=== PATIENT | female | born 1995 | race Caucasian/White ===

== ENCOUNTER → 2019-04-26 12:23 | Outpatient (CLI) | payer BC, SELFPAY ==
[2019-04-26 15:11] LABS: HCG,Quantitative 9367 mIU/mL (0-2)
== END ==
PROVIDERS: Visit Provider Nurse Practitioner Obstetrics & Gynecology
DX: N92.6 Irregular menstruation, unspecified (principal)
CPT/HCPCS: 36415; 84702

== ENCOUNTER → 2019-05-17 12:11 | Outpatient (CLI) | payer BC, SELFPAY ==
[2019-05-17 12:36] LABS: Basophils % 0.3 % (0.1-2.0); Eosinophils # 0.1 K/mm3 (0.0-0.4); Eosinophils % 0.9 % (0.1-12.0); Hematocrit 38.2 % (37.0-47.0); Hemoglobin 13.7 g/dL (12.2-16.2); Lymphocytes # 1.6 K/mm3 (0.7-4.5); Lymphocytes % 19.1 % (10-50); Mean Corpuscular HGB Conc 35.7 g/dL (31.8-35.4); Mean Corpuscular Hemoglobin 31.6 pg (27.0-31.2); Mean Corpuscular Volume 88.4 fl (81-99); Mean Platelet Volume 7.7 fl (7.4-10.4); Monocytes # 0.3 K/mm3 (0.1-1.0); Monocytes % 3.3 % (1.7-9.3); Neutrophils # 6.3 K/mm3 (1.8-7.8); Neutrophils % 76.4 % (37.0-80.0); Platelet Count 239 K/mm3 (142-424); Red Blood Count 4.33 M/mm3 (4.20-5.40); Red Cell Distribution Width 12.5 % (11.5-17.5); White Blood Count 8.3 K/mm3 (4.8-10.8)
[2019-05-18 07:32] LABS: HIV Screen 4th Generation wRfx Non Reactive (Non Reactive)
[2019-05-18 14:59] LABS: Rapid Plasma Reagin Ab Titer Non Reactive (NonRea<1:1)
[2019-05-18 15:00] LABS: Hepatitis B Surface Antigen Negative (Negative); Hepatitis C Antibody <0.1 s/co ratio (0.0-0.9); Rubella Antibodies, IgG 4.69 index (Immune >0.99)
== END ==
PROVIDERS: Visit Provider Nurse Practitioner Obstetrics & Gynecology
DX: Z34.90 Encounter for supervision of normal pregnancy, unspecified, unspecified trimester (principal)
CPT/HCPCS: 36415; 85025; 86592; 86703; 86762; 86850; 87340; 87380; G0432

== ENCOUNTER → 2019-05-24 10:23 | Outpatient (CLI) | payer BC, SELFPAY ==
--- NOTE | 2019-05-24 10:24 | US_ITS ---
PROCEDURE: US OB TRANSVAGINAL CLINICAL INDICATION: for dates evaluate gestational age, spotting COMPARISON: TVP US TRANSVAGINAL PREG from 01/24/2016 FINDINGS: There is an intrauterine gestational sac although somewhat more oblong in nature than 1 would expect.. However, there is no evidence of a yolk sac or pole. The adnexa on the right is unremarkable. There is a 19 mm left ovarian cyst. No cul-de-sac fluid is evident. On the last image submitted there is a circular area IMPRESSION: Intrauterine gestational sac with no obvious pole. Cannot confirm viability. Recommend serial beta HCGs and sonographic follow-up Estimated due date by Ultrasound is 01/15/2020 Dictated by: Narinder Singletary MD 05/24/2019 11:30 Electronically signed by Narinder Singletary MD in [place] 05/24/2019 11:30
[2019-05-24 13:23] LABS: HCG,Quantitative 15776 mIU/ml (0-5.42)
== END ==
PROVIDERS: PCP Emergency Medicine; Visit Provider Nurse Practitioner Obstetrics & Gynecology
DX: O26.841 Uterine size-date discrepancy, first trimester (principal); Z34.90 Encounter for supervision of normal pregnancy, unspecified, unspecified trimester
CPT/HCPCS: 36415; 76817; 84702

== ENCOUNTER → 2019-05-26 15:08 | Outpatient (CLI) | payer BC, SELFPAY ==
[2019-05-26 19:36] LABS: HCG,Quantitative 12053 mIU/ml (0-5.42)
== END ==
PROVIDERS: Visit Provider Nurse Practitioner Obstetrics & Gynecology
DX: Z34.90 Encounter for supervision of normal pregnancy, unspecified, unspecified trimester (principal)
CPT/HCPCS: 36415; 84702

== ENCOUNTER → 2020-12-14 12:16 | Outpatient (CLI) | payer BC, SELFPAY ==
[2020-12-14 13:22] LABS: HCG,Quantitative 5272 mIU/ml (0-5.42)
== END ==
PROVIDERS: Visit Provider Obstetrics & Gynecology
DX: Z34.90 Encounter for supervision of normal pregnancy, unspecified, unspecified trimester (principal)
CPT/HCPCS: 84702

== ENCOUNTER → 2020-12-18 14:59 | Outpatient (CLI) | payer BC, SELFPAY ==
[2020-12-18 16:00] LABS: HCG,Quantitative 13386 mIU/ml (0-5.42)
== END ==
PROVIDERS: Visit Provider Obstetrics & Gynecology
DX: Z34.90 Encounter for supervision of normal pregnancy, unspecified, unspecified trimester (principal)
CPT/HCPCS: 36415; 84702

== ENCOUNTER 2020-12-27 20:42 | Emergency (ER) | payer BC, SELFPAY ==
[2020-12-27 21:31] VITALS: BMI 22.8
--- NOTE | 2020-12-27 21:31 | US_ITS ---
PROCEDURE INFORMATION: Exam: US , Transvaginal Exam date and time: 12/27/2020 9:31 PM Age: 25 years old Clinical indication: Lmp or gestational age (in weeks): 6w4; Antepartum complications; Bleeding; ; Additional info: 6-8 wk preg, vaginal bleeding. No pain TECHNIQUE: Imaging protocol: Real-time transvaginal obstetrical ultrasound of the maternal pelvis with image documentation. Transvaginal imaging was used for better evaluation of the fetus, adnexa, and/or cervix. COMPARISON: US OB TRANSVAGINAL 05/24/2019 10:32 AM FINDINGS: Gestation: There is a single gestational sac identified within the superior aspect of the endometrial cavity. On sagittal imaging the gestational sac has a dumbbell shape. Contained within the gestational sac is a yolk sac and embryonic pole. Yolk sac size is 4 mm. [place]-rump length is 0.52 cm which corresponds to a mean gestational age of 6 weeks 2 days. heart rate is 120 beats per minute. Placenta: There is no evidence of subchorionic fluid collection or bleed. MATERNAL: Cervix: The cervix is closed. Right adnexa: The right ovary measures 2.5 x 1.2 x 1.4 cm. The left ovary measures 3.0 x 2.3 x 1.4 cm. There is no evidence of free fluid within the cul-de-sac. IMPRESSION: 1. Single viable intrauterine gestation with a mean gestational age of 6 weeks 2 days. heart rate 120 beats per minute. No evidence of subchorionic fluid collection at this time. 2. The ovaries are normal size and echotexture. No evidence of free fluid within the cul-de-sac. 3. The gestational sac appears misshapen. To further evaluate this patient progress examination in 1 week would be helpful.
[2020-12-27 21:40] LABS: Microscopic, Urine URINE MICROSCOPIC (MICROSCOPIC)
[2020-12-27 22:01] LABS: Appearance,Urine SL CLOUDY (Clear); Bilirubin,Urine Negative (Negative); Blood, Urine 3+ (Negative); Color,Urine YELLOW (Yellow); Glucose,Urine (UA) Negative (Negative); Ketones,Urine Negative (Negative); Leukocyte Esterase,Urine TRACE (Negative); Nitrate,Urine Negative (Negative); Protein,Urine Negative (Negative); Specific Gravity, Urine 1.025 (1.005-1.030); Urobilinogen,Urine 0.2 EU/dl (0.2)
[2020-12-27 22:06] LABS: Urine Pregnancy, HCG Qual. Positive (Negative)
[2020-12-27 22:07] VITALS: BP 100/58; PULSE 93; RESP 16; TEMP 36.9; O2SAT 99; BMI 23.7
[2020-12-27 22:10] LABS: Bacteria,Urine 3+ /lpf; Mucus,Urine 2+ /lpf
--- NOTE | 2020-12-27 22:15 | PC.NURSE ---
[facility] (u/s [facility]) s/w Dr. Leyva with results.
--- NOTE | 2020-12-27 22:17 | HMH.EDPREG ---
ED Disposition Clinical Impression: Vaginal bleeding during Qualifiers: Weeks of gestation: less than 8 weeks Qualified Code(s): Z3A.01 - Less than 8 weeks gestation of Disposition: Home, Self-Care Condition on Discharge: Good Instructions: DI for Vaginal Bleeding During Additional Instructions: call ob in am and check on urine culture results Referrals: Ricardo Leyva MD [Primary Care Provider] - - Critical Care Critical Care Time: No Attestation: On 12/27/20, the high probability of a clinically significant, sudden or life threatening deterioration of the following system(s) required my full and direct attention, intervention and personal management. The time I documented below is in addition to time spent performing reported procedures but includes the following listed in this critical care notation. Medical Decision Making - Medical Records Medical records reviewed: Yes: I reviewed the patient's medical records. - Neeraj Inquiry Pt receiving controlled substance: No Vital Signs: 12/27/20 22:07 Temperature 98.4 F Temperature Source Oral Pulse Rate [Right] 93 H Respiratory Rate 16 Blood Pressure [Right Arm] 100/58 L Blood Pressure Mean [Right Arm] 72 02 Sat by Pulse Oximetry 99 Oxygen Delivery Method Room Air - Lab Data Lab results reviewed: Yes: I reviewed the patient's lab results. Lab Results 12/27/20 20:58: Urine Color Yellow, Urine Appearance Sl cloudy, Urine pH 6.0, Ur Specific [place] 1.025, Urine Protein Negative, Urine Glucose (UA) Negative, Urine Ketones Negative, Urine Blood 3+, Urine Nitrate Negative, Urine Bilirubin Negative, Urine Urobilinogen 0.2, Ur Leukocyte Esterase Trace, Urine RBC 10-20, Urine WBC 5-10, Ur Squamous Epith Cells 10-20, Urine Bacteria 3+, Urine Mucus 2+ 12/27/20 20:58: Urine HCG, Qual Positive Orders (Tests/Meds): ORDERS Category Date Time Status US transvaginal Stat Exams 12/27/20 21:31 Ordered C-Reactive Protein Stat Lab 12/27/20 21:32 Ordered Complete Blood Count Auto Diff Stat Lab 12/27/20 21:32 Ordered Comprehensive Metabolic Panel Stat Lab 12/27/20 21:32 Ordered Erythrocyte Sedimentation Rate Stat Lab 12/27/20 21:32 Ordered HCG,Quantitative Stat Lab 12/27/20 21:32 Ordered Procalcitonin Stat Lab 12/27/20 21:32 Ordered Urine Culture Stat Micro 12/27/20 20:58 Received - US Data US Images: Pelvis ED US Reviewed: Yes: I discussed the US results w/the radiologist Findings Narrative: iup Medical Decision Narrative: has stable labs and exam and pelvic u/s - has A+ blood type HPI - General Chief complaint: Vaginal Bleeding Stated complaint: vaginal bleeding 6-8weeks Time Seen by Provider: 12/27/20 22:05 Mode of Arrival: Family Vehicle Source of Information: Patient, Medical Record Limitations: No Limitations Description of Symptoms (Recalled from ER Triage Doc. by RN): Pt states she was spotting last wk. Today she felt a gush and and then began bleeding more than before. She states she has had 2 miscarriages before @ 5 wk and ~ 10wk and had a dnc 1.5 yr ago[address] Bonilla. Pt denies any pain. Nausea without vomiting. She states LMP was 11/09/20. Pt has not had a u/s yet oir see OB for this pregnacy. - History of Present Illness HPI Narrative: pt is early preg and had bleeding like early menses with sl cramp- reports a+ blood type and has hx of prev miscarriage - MD Complaint: vaginal bleeding Onset (ago): hour(s) Consistency: intermittent Severity: moderate Quality: cramping Associated symptoms: denies other symptoms Vaginal discharge: none Vaginal bleeding: light : Yes Date of Last Menstrual Period: 11/09/20 care: followed by OB - Related Data Blood Type: A (+) positive Para: 0 Home Medications Medication Instructions Recorded Confirmed Pnv No.95/Ferrous Fum/Folic AC 1 each PO DAILY 12/27/20 12/27/20 [ Caplet]
[2020-12-27 22:31] VITALS: BP 105/60; PULSE 88; RESP 16; TEMP 36.9; O2SAT 99
== END 2020-12-27 22:34 | disposition home or self-care (01) ==
PROVIDERS: Emergency Provider Emergency Medicine; PCP Emergency Medicine
DX: O20.9 Hemorrhage in early pregnancy, unspecified (principal); Z3A.08 8 weeks gestation of pregnancy
CPT/HCPCS: 76830; 81001; 81025; 87086; 99282

== ENCOUNTER → 2021-01-05 14:57 | Outpatient (CLI) | payer BC, SELFPAY ==
[2021-01-05 15:19] LABS: Basophils # 0.1 K/mm3 (0-0.2); Basophils % 0.5 % (0.1-2.0); Eosinophils # 0.1 K/mm3 (0.0-0.4); Eosinophils % 0.8 % (0.1-12.0); Hematocrit 37.2 % (37.0-47.0); Hemoglobin 12.7 g/dL (12.2-16.2); Lymphocytes # 1.6 K/mm3 (0.7-4.5); Lymphocytes % 16.8 % (10-50); Mean Corpuscular HGB Conc 34.2 g/dL (31.8-35.4); Mean Corpuscular Volume 90.6 fl (81-99); Mean Platelet Volume 8.6 fl (7.4-10.4); Monocytes # 0.4 K/mm3 (0.1-1.0); Monocytes % 3.7 % (1.7-9.3); Neutrophils # 7.5 K/mm3 (1.8-7.8); Neutrophils % 78.2 % (37.0-80.0); Platelet Count 280 K/mm3 (142-424); Red Blood Count 4.11 M/mm3 (4.20-5.40); Red Cell Distribution Width 12.9 % (11.5-17.5); White Blood Count 9.6 K/mm3 (4.8-10.8)
[2021-01-07 07:22] LABS: Progesterone 11.7 ng/mL (.)
[2021-01-07 08:12] LABS: Rubella Antibodies, IgG 4.82 index (Immune >0.99)
[2021-01-07 09:12] LABS: Rapid Plasma Reagin Ab Titer Non Reactive (NonRea<1:1)
[2021-01-07 10:17] LABS: HIV Screen 4th Generation wRfx Non Reactive (Non Reactive)
[2021-01-07 12:08] LABS: Hepatitis B Surface Antigen Negative (Negative); Hepatitis C Antibody <0.1 s/co ratio (0.0-0.9)
== END ==
PROVIDERS: Visit Provider Obstetrics & Gynecology
DX: Z34.90 Encounter for supervision of normal pregnancy, unspecified, unspecified trimester (principal)
CPT/HCPCS: 36415; 84144; 85025; 86592; 86703; 86762; 86850; 87340; 87380; G0432

== ENCOUNTER → 2021-01-10 13:45 | Outpatient (CLI) | payer BC, SELFPAY ==
--- NOTE | 2021-01-10 13:45 | US_ITS ---
PROCEDURE: US OB <= 14 WEEKS FETUS CLINICAL INDICATION: follow up Follow-up for viability COMPARISON: US US OB TRANSVAGINAL from 05/24/2019 US US TRANSVAGINAL from 12/27/2020 FINDINGS: An intrauterine gestational sac is present with a pole with a crown-rump length of 2cm correlating to gestational age of 8weeks 5days. heart tones are present with an FHR of 183bpm. Yolk sac is noted. There is a small hypoechoic area adjacent to the gestational sac which may represent a small area of subchorionic hemorrhage IMPRESSION: Live IUP at 8 weeks 5 days. Possible small area of subchorionic bleed measuring 8 x 5 mm Estimated due date by Ultrasound is 08/17/2021 Dictated by: Narinder Singletary MD 01/10/2021 17:20 Narinder Singletary MD in [place] 01/10/2021 17:20
== END ==
LOC: RAD 13:45
PROVIDERS: PCP Emergency Medicine; Visit Provider Obstetrics & Gynecology
DX: O28.3 Abnormal ultrasonic finding on antenatal screening of mother (principal)
CPT/HCPCS: 76801

== ENCOUNTER → 2021-01-23 14:26 | Outpatient (CLI) | payer BC, SELFPAY ==
[2021-01-25 08:14] LABS: Progesterone 15.6 ng/mL (.)
== END ==
PROVIDERS: Visit Provider Obstetrics & Gynecology
DX: Z34.90 Encounter for supervision of normal pregnancy, unspecified, unspecified trimester (principal)
CPT/HCPCS: 84144

== ENCOUNTER → 2021-04-17 13:41 | Outpatient (CLI) | payer BC, SELFPAY ==
--- NOTE | 2021-04-17 13:42 | US_ITS ---
FINAL REPORT CLINICAL HISTORY: dates-- anatomy scan FINDINGS: There is a single live intrauterine gestation. Presentation is cephalic. The cervix is closed and measures 3.06 cm. Placenta is anterior, grade 1. movement is noted. Heart arrhythmia was noted on real-time imaging. Three-vessel cord with satisfactory umbilical cord insertion. Four-chamber heart is noted. brain and ventricles are unremarkable. Chest and diaphragm are unremarkable. ABDOMEN: Both kidneys are unremarkable. Stomach is unremarkable. SPINE: No anomalies identified. Both arms and legs noted. AMNIOTIC FLUID: Appropriate amount. MEASUREMENTS: ULTRASOUND AGE: 22 weeks 4 days. GESTATION AGE: 22 weeks 1 day. ESTIMATED WEIGHT: 513 g GROWTH PERCENTILE: 64 % BPD: 5.51 cm consistent with 22 weeks 6 days. OFD: 7 cm consistent with 22 week 5 days. HC: 19.79 cm consistent with 22 weeks 0 days. AC: 17.54 cm consistent with 22 week 4 days. FL: 3.96 cm consistent with 22 weeks 6 days. CEREBELLUM: 2.20 cm consistent with 22 weeks 0 days. HUMERUS: 3.73 cm consistent with 23 week 1 day. HC/AC: 1.13 CI: 79% FL/BPD: 72% FL/AC: 23% IMPRESSION: Single living IUP with an ultrasound age of 22 week 4 days. Heart arrhythmia was noted on real-time imaging. Recommend continued follow-up. Reviewed, Interpreted and Dictated by Sunil Quesada III, MD Transcribed by Nicole Redmond Authenticated by Sunil Quesada III, MD on 04/17/2021 04:00:58 PM [facility]
== END ==
LOC: RAD 13:42
PROVIDERS: PCP Emergency Medicine; Visit Provider Obstetrics & Gynecology
DX: Z34.90 Encounter for supervision of normal pregnancy, unspecified, unspecified trimester (principal)
CPT/HCPCS: 76801

== ENCOUNTER → 2021-05-21 08:26 | Outpatient (CLI) | payer BC, SELFPAY ==
[2021-05-21 08:52] LABS: Basophils # 0.1 K/mm3 (0-0.2); Basophils % 0.6 % (0.1-2.0); Eosinophils # 0.3 K/mm3 (0.0-0.4); Eosinophils % 1.7 % (0.1-12.0); Hematocrit 32.8 % (37.0-47.0); Hemoglobin 11.1 g/dL (12.2-16.2); Lymphocytes # 1.9 K/mm3 (0.7-4.5); Lymphocytes % 11.5 % (10-50); Mean Corpuscular HGB Conc 33.9 g/dL (31.8-35.4); Mean Corpuscular Hemoglobin 32.7 pg (27.0-31.2); Mean Corpuscular Volume 96.5 fl (81-99); Mean Platelet Volume 9.1 fl (7.4-10.4); Monocytes # 0.5 K/mm3 (0.1-1.0); Monocytes % 3.2 % (1.7-9.3); Neutrophils # 13.5 K/mm3 (1.8-7.8); Neutrophils % 82.9 % (37.0-80.0); Platelet Count 286 K/mm3 (142-424); Red Cell Distribution Width 13.8 % (11.5-17.5); White Blood Count 16.2 K/mm3 (4.8-10.8)
[2021-05-21 08:58] LABS: MANUAL DIFFERENTIAL MANUAL DIFFERENTIAL (MANUAL DIFF)
[2021-05-21 10:25] LABS: Glucose 1 Hour 123 mg/dL (74-100); Glucose,Fasting 80 mg/dl (74-100)
[2021-05-21 11:01] LABS: Eosinophils % 2 % (0-3); Lymphocytes % 8 % (10-50); Monocytes % 1 % (2-9); Neutrophils % 88 % (42-76); Platelet Estimate Normal; RBC Morphology Normal; Total Cells Counted 100
== END ==
PROVIDERS: Visit Provider Obstetrics & Gynecology
DX: Z34.90 Encounter for supervision of normal pregnancy, unspecified, unspecified trimester (principal)
CPT/HCPCS: 36415; 82951; 85007; 85025

== ENCOUNTER → 2021-07-11 13:49 | Outpatient (CLI) | payer BC, SELFPAY ==
--- NOTE | 2021-07-11 13:49 | US_ITS ---
FINAL REPORT CLINICAL HISTORY: Growth and SUNNY FINDINGS: There is a single live intrauterine gestation. Presentation is cephalic. Placenta is anterior, fundal and grade 2. Cardiac activity is confirmed at 163 bpm. brain and ventricles are unremarkable. Chest and diaphragm are unremarkable. ABDOMEN: Both kidneys are unremarkable. Stomach is unremarkable. Both arms and legs noted. AMNIOTIC FLUID: 12.2 cm MEASUREMENTS: ULTRASOUND AGE: 34 weeks 4 days. GESTATION AGE: 34 weeks 2 days. ESTIMATED WEIGHT: 2493 g GROWTH PERCENTILE: 57% BPD: 8.4 cm consistent with 33 weeks 6 days. OFD: 11 cm consistent with 35 weeks 3 days. HC: 30.7 cm consistent with 34 weeks 2 days. AC: 30.8 cm consistent with 34 weeks 5 days. FL: 6.9 cm consistent with 35 weeks 2 days. HC/AC: 1.0 CI: 76% FL/BPD: 82% FL/AC: 22% IMPRESSION: Single living IUP with an ultrasound age of 34 weeks 4 days. Reviewed, Interpreted and Dictated by Sunil Quesada III, MD Transcribed by Kyle Macias Authenticated by Sunil Quesada III, MD on 07/11/2021 04:55:04 PM [facility]
== END ==
LOC: RAD 13:49
PROVIDERS: PCP Emergency Medicine; Visit Provider Obstetrics & Gynecology
DX: O36.5990 Maternal care for other known or suspected poor fetal growth, unspecified trimester, not applicable or unspecified (principal)
CPT/HCPCS: 76816

== ENCOUNTER → 2021-07-19 13:09 | Outpatient (CLI) | payer BC, SELFPAY | PROVIDERS: Visit Provider Obstetrics & Gynecology | DX: Z34.90 Encounter for supervision of normal pregnancy, unspecified, unspecified trimester (principal); Z3A.35 35 weeks gestation of pregnancy | CPT/HCPCS: 86403 ==

== ENCOUNTER → 2021-08-15 10:22 | Outpatient (CLI) | payer BC, SELFPAY | PROVIDERS: PCP Emergency Medicine; Visit Provider Obstetrics & Gynecology | DX: Z01.818 Encounter for other preprocedural examination (principal); Z20.822 Contact with and (suspected) exposure to COVID-19; Z34.90 Encounter for supervision of normal pregnancy, unspecified, unspecified trimester | CPT/HCPCS: C9803; U0003; U0005 ==

== ENCOUNTER 2021-08-16 04:56 | Inpatient (IN) | payer BC, SELFPAY ==
[2021-08-16 05:03] VITALS: BMI 24.3
[2021-08-16 05:41] LABS: Coronavirus 19, PCR Not Detected (NotDetected); Influenza A, PCR Not Detected (NotDetected); Influenza B, PCR Not Detected (NotDetected); MANUAL DIFFERENTIAL MANUAL DIFFERENTIAL (MANUAL DIFF); Microscopic, Urine URINE MICROSCOPIC (MICROSCOPIC)
[2021-08-16 05:43] LABS: Basophils # 0.1 K/mm3 (0-0.2); Eosinophils # 0.3 K/mm3 (0.0-0.4); Eosinophils % 2.6 % (0.1-12.0); Hematocrit 38.2 % (37.0-47.0); Hemoglobin 13.3 g/dL (12.2-16.2); Lymphocytes # 1.8 K/mm3 (0.7-4.5); Lymphocytes % 13.8 % (10-50); Mean Corpuscular HGB Conc 34.8 g/dL (31.8-35.4); Mean Corpuscular Hemoglobin 32.6 pg (27.0-31.2); Mean Corpuscular Volume 93.9 fl (81-99); Mean Platelet Volume 10.7 fl (7.4-10.4); Monocytes # 0.5 K/mm3 (0.1-1.0); Monocytes % 3.5 % (1.7-9.3); Neutrophils # 10.2 K/mm3 (1.8-7.8); Neutrophils % 79.2 % (37.0-80.0); Platelet Count 212 K/mm3 (142-424); Red Blood Count 4.07 M/mm3 (4.20-5.40); Red Cell Distribution Width 14.1 % (11.5-17.5); White Blood Count 12.9 K/mm3 (4.8-10.8)
[2021-08-16 05:45] LABS: Appearance,Urine CLEAR (Clear); Bilirubin,Urine Negative (Negative); Blood, Urine Negative (Negative); Color,Urine YELLOW (Yellow); Glucose,Urine (UA) Negative (Negative); Ketones,Urine Negative (Negative); Leukocyte Esterase,Urine Negative (Negative); Nitrate,Urine Negative (Negative); Protein,Urine Negative (Negative); Specific Gravity, Urine 1.025 (1.005-1.030); Urobilinogen,Urine 0.2 EU/dl (0.2)
[2021-08-16 05:56] LABS: Barbiturates Screen,Urine Negative ng/ml (<200)
[2021-08-16 05:57] LABS: Amphetamine/Metha Screen,Urine Negative ng/ml (<1000); Benzodiazepines Screen,Urine Negative ng/ml (<200)
[2021-08-16 05:58] LABS: Cannabinoid Screen,Urine Negative ng/ml (<50)
[2021-08-16 05:59] LABS: Cocaine Screen,Urine Negative ng/ml (<300); Methadone Screen,Urine Negative ng/ml (<300)
[2021-08-16 06:00] LABS: Opiate Screen,Urine Negative ng/ml (<300)
[2021-08-16 06:01] LABS: Phencyclidine Screen,Urine Negative ng/ml (<25)
[2021-08-16 06:16] VITALS: BP 114/71; PULSE 86; RESP 17; TEMP 36.6; O2SAT 100; BMI 24.3
[2021-08-16 07:23] LABS: Bacteria,Urine 1+ /lpf; Calcium Oxalate Crystals,Urine 1+ /lpf
[2021-08-16 07:44] VITALS: BP 119/85; PULSE 87; RESP 16; TEMP 36.5; O2SAT 99
[2021-08-16 07:54] LABS: Eosinophils % 2 % (0-3); Lymphocytes % 16 % (10-50); Monocytes % 5 % (2-9); Neutrophils % 76 % (42-76); RBC Morphology Normal; Total Cells Counted 100
[2021-08-16 07:55] LABS: Platelet Estimate Normal
--- NOTE | 2021-08-16 09:28 | HMH.HP ---
*Admission Date: 08/16/21 *Chief complaint: Labor induction *History of present illness: 26 yo with AVI 08/20/21 39 3/ with dating by 6 04/16 ultrasound care [facility]- Dr. Bonilla arrhythmia noted on 20 week anatomy ultrasound M consult with no abnormal findings and normal cardiac anatomy testing reassuring with weekly NST and no arrhythmia detected [facility] History I have reviewed the patient's past medical history: Yes Medical History: Denies:: Cancer, Diabetes Mellitus Type 1, Diabetes Mellitus Type 2, Internal Pacemaker, MRSA, Seizures *Have you ever received a pneumonia vaccine?: No *Have you received a flu vaccine this season?: No Other Medical History: Denies: Blood Transfusion Reaction Anesthesia experience/problems:: none Other Surgeries: Yes: No Previous Surgery, Dilation and Curettage. No: , Pacemaker Amputation: No Fractures: No - *Social History Smoking Status: Never smoker Alcohol Intake: never Alcohol Intake Frequency:: other Substance Use Type: denies use *Occupational Status:: unemployed Housing: house Household Members: spouse *Travel in the last 8 weeks: None Family Hx:: No significant family history Para: 0 Review of Systems - Review of Systems Review of systems:: pertinent systems reviewed and negative unless documented below - *Genitourinary Denies abnormal vaginal bleeding Meds Home Medications Medication Instructions Recorded Confirmed Type Pnv No.95/Ferrous Fum/Folic AC 1 each PO DAILY 12/27/20 08/16/21 History [ Caplet] Ferrous Sulfate [Slow Fe] 142 mg PO DAILY 08/16/21 08/16/21 History Allergies Allergy/AdvReac Type Severity Reaction Status Date / Time No Known Allergies Allergy Verified 08/13/21 14:54 Exam Vital signs and Labs for Last 24 Hours: Temp Pulse Resp BP Pulse Ox 97.8 F 71 18 106/65 L 99 08/16/21 12:04 08/16/21 12:04 08/16/21 12:04 08/16/21 12:04 08/16/21 07:44 Laboratory Results - last 24 hr 08/16/21 05:29: WBC 12.9 H, RBC 4.07 L, Hgb 13.3, Hct 38.2, MCV 93.9, MCH 32.6 H, MCHC 34.8, RDW 14.1, Plt Count 212, MPV 10.7 H, Neut % (Auto) 79.2, Lymph % (Auto) 13.8, [place] % (Auto) 3.5, Eos % (Auto) 2.6, Baso % (Auto) 1.0, Neut # (Auto) 10.2 H, Lymph # (Auto) 1.8, [place] # (Auto) 0.5, Eos # (Auto) 0.3, Baso # (Auto) 0.1, Total Counted 100, Neutrophils % (Manual) 76, Lymphocytes % (Manual) 16, Monocytes % (Manual) 5, Eosinophils % (Manual) 2, Basophils % (Manual) 1.0, Platelet Estimate Normal, RBC Morphology Normal 08/16/21 05:29: Urine Color Yellow, Urine Appearance Clear, Urine pH 6.0, Ur Specific [place] 1.025, Urine Protein Negative, Urine Glucose (UA) Negative, Urine Ketones Negative, Urine Blood Negative, Urine Nitrate Negative, Urine Bilirubin Negative, Urine Urobilinogen 0.2, Ur Leukocyte Esterase Negative, Urine WBC 3-5, Ur Squamous Epith Cells 10-20, Calcium Oxalate Crystal 1+, Urine Bacteria 1+ 08/16/21 05:29: SARS-CoV-2 (PCR) Not detected, Influenza A Untype (PCR) Not detected, Influenza Type B (PCR) Not detected 08/16/21 05:29: Blood Type A Positive, Antibody Screen Negative 08/16/21 05:30: Urine Opiates Screen Negative, Urine Methadone Screen Negative, Ur Barbituates Screen Negative, Ur Phencyclidine Scrn Negative, Ur Amphetamines Screen Negative, U Benzodiazepines Scrn Negative, Urine Cocaine Screen Negative, U Marijuana (THC) Screen Negative I & O for Last 24 hours: Intake & Output 08/14/21 08/15/21 08/16/21 08/17/21 11:59 11:59 11:59 11:59 Weight 160 lb - Constitutional no acute distress - *Routine HEENT Exam Head: Present: normocephalic Eye: Present: EOMI, PERRL ENT: Present: mucous membranes moist - *Routine Neck Exam Present: supple. Absent: lymphadenopathy - *Routine Respiratory Exam Present: CTA bilaterally - *Routine Cardiovascular Exam Present: RRR - *Routine Abdominal Exam Present: soft, normoactive bowel sounds. Absent: tenderness - *Routine
--- NOTE | 2021-08-16 11:43 | P.PN_ITS ---
[facility] Anesthesia Checklist - Patient Identification Patient Identification: Arm Band, Verbal (Name & ) - Structural Data Admitted From: Inpatient Planned Operative Procedure/s: Right Knee Arthroscopy Consent for Planned Operative Procedure(s) Verified: Yes Verified Documents: Surgical Consent - NPO Status Verified Time NPO: 00:00 - Chart Verification Results Verified: CBC, BMP - Additional verifications Anesthesia Reactions: No Hx Blood Transfusions: No Blood Transfusion Reaction: No - Airway Assessment C-Spine Mobility Assessed: Yes TMJ Mobility Assessed: Yes Dentition: Good Dentition - Neurological Assessment Level of Consciousness: Awake, Alert, Appropriate - Anesthesia Plan Anesthesia Risk discussed: Yes ASA Class: II Anesthesia Type: Epidural [facility] History Medical History: Denies:: Cancer, Diabetes Mellitus Type 1, Diabetes Mellitus Type 2, Internal Pacemaker, MRSA, Seizures *Have you ever received a pneumonia vaccine?: No *Have you received a flu vaccine this season?: No Other Medical History: Denies: Blood Transfusion Reaction Anesthesia experience/problems:: none Other Surgeries: Yes: No Previous Surgery, Dilation and Curettage. No: C- section, Pacemaker Amputation: No Fractures: No - *Social History Smoking Status: Never smoker Alcohol Intake: never Alcohol Intake Frequency:: other Substance Use Type: denies use *Occupational Status:: unemployed Housing: house Household Members: spouse *Travel in the last 8 weeks: None Family Hx:: No significant family history Para: 0
[2021-08-16 12:04] VITALS: BP 106/65; PULSE 71; RESP 18; TEMP 36.6
[2021-08-16 16:02] VITALS: BP 120/65; PULSE 88; RESP 16; TEMP 36.8
--- NOTE | 2021-08-16 17:23 | HMH.DN ---
- Delivery Note Delivery Date:: 08/16/21 Delivery Time:: 13:55 Anesthesia Type: Epidural Was labor medically induced?: Yes Induction method: per pitocin protocol Gestational age (weeks): 39 delivered prior to 39 weeks?: No Gender: Female at 1 minute: 6 at 5 minutes: 9 LAC or MLE?: LAC Delivery Procedure:: Repetitive deep variable decelerations of heart rate with pushing Vacuum-assisted vaginal delivery of live born female infant over intact perineum. Delivery uncomplicated No nuchal cord No shoulder dystocia with delivery taken to warmer immediately after delivery, with standard nursing assessment performed Infant Apgars: 6 & 9 Placenta spontaneously expressed and examined; noted to be complete/intact. Bilateral vaginal sulcus tears repaired with 2-0 vicryl 2nd degree perineal laceration repaired in layers with vicryl EBL: 500 cc All sponge/needle/instrument counts correct at conclusion of procedure Mother and infant stable to recovery Laceration:: vaginal Placental Delivery Description: Spontaneous
[2021-08-17 06:58] LABS: Hematocrit 31.5 % (37.0-47.0); Hemoglobin 10.9 g/dL (12.2-16.2)
[2021-08-17 08:16] VITALS: BP 116/63; PULSE 85; RESP 17; TEMP 36.4; O2SAT 99
--- NOTE | 2021-08-17 12:01 | HMH.ACPN2 ---
Internal Medicine - PN: Subj *Date: 08/17/21 *Time: 12:01 Interval history: PPD #1 VAVD She is doing well today without any unusual complaints She is tolerating a regular diet She is ambulating and voiding without difficulty Procedure EBL 500cc with Hgb today 10.1 She is asymptomatic with anemia Exam Vital signs and Labs for Last 24 Hours: Temp Pulse Resp BP Pulse Ox 97.8 F 91 H 16 115/65 99 08/17/21 15:40 08/17/21 15:40 08/17/21 15:40 08/17/21 15:40 08/17/21 15:40 Laboratory Results - last 24 hr 08/17/21 06:33: Hgb 10.9 L, Hct 31.5 L I & O for Last 24 hours: Intake & Output 08/15/21 08/16/21 08/17/21 08/18/21 11:59 11:59 11:59 11:59 Output Total 400 / 400 Balance -400 / -400 Weight 160 lb Narrative: CONSTITUTIONAL: no acute distress HEENT: mucous membranes moist PULMONARY: breathing unlabored without audible wheezes CV: no tachycardia or visible JVD; normal LE peripheral pulses ABD: soft, NT/ND, no guarding : fundus firm below umbilicus SKIN: no visible rash or lesions EXT: 1+ edema LEs NEURO: alert/oriented, no altered mental status PSYCH: appropriate mood and demeanor Assessment and Plan (1) 39 weeks gestation of Status: Acute Category: Medical Code(s): Z3A.39 - 39 weeks gestation of (2) Recurrent loss Status: Acute Category: Medical Code(s): N96 - Recurrent loss (3) cardiac arrhythmia Status: Acute Category: Medical (4) Vaginal delivery Status: Acute Category: Medical Code(s): O80 - Encounter for full-term uncomplicated delivery (5) Anemia associated with acute blood loss Status: Acute Category: Medical Code(s): D62 - Acute posthemorrhagic anemia - Assessment and plan all Dx Assessment and Plan for all problems:: Routine care FeSO4 supplementation Anticipate discharge home tomorrow
[2021-08-17 12:53] VITALS: BP 126/83; PULSE 97; RESP 18; TEMP 36.8; O2SAT 99
[2021-08-17 15:40] VITALS: BP 115/65; PULSE 91; RESP 16; TEMP 36.6; O2SAT 99
[2021-08-18 08:31] VITALS: BP 125/59; PULSE 84; RESP 18; TEMP 36.6; O2SAT 98
--- NOTE | 2021-08-18 09:36 | HMH.ACPN2 ---
Internal Medicine - PN: Subj *Date: 08/18/21 *Time: 09:36 (This is day #2. The patient is afebrile. Her vital signs are stable. Lochia normal. Uterine fundus involuting well. Hemoglobin 10.9 g, but clinically stable. Lochia normal. Perineum healing well. She will be discharged today.) Exam Vital signs and Labs for Last 24 Hours: Temp Pulse Resp BP Pulse Ox 97.8 F 84 18 125/59 L 98 08/18/21 08:31 08/18/21 08:31 08/18/21 08:31 08/18/21 08:31 08/18/21 08:31 I & O for Last 24 hours: Intake & Output 08/15/21 08/16/21 08/17/21 08/18/21 11:59 11:59 11:59 11:59 Output Total 400 / 400 Balance -400 / -400 Weight 160 lb Assessment and Plan (1) 39 weeks gestation of Status: Acute Category: Medical Code(s): Z3A.39 - 39 weeks gestation of (2) Recurrent loss Status: Acute Category: Medical Code(s): N96 - Recurrent loss (3) cardiac arrhythmia Status: Acute Category: Medical (4) Vaginal delivery Status: Acute Category: Medical Code(s): O80 - Encounter for full-term uncomplicated delivery (5) Anemia associated with acute blood loss Status: Acute Category: Medical Code(s): D62 - Acute posthemorrhagic anemia
--- NOTE | 2021-08-18 09:37 | HMH.DCSUM ---
General - General Admission date:: 08/16/21 Discharge date: 08/18/21 (This 26-year-old 3, now para 1, Ab2 white female was admitted at 39-3/7 weeks for induction. She labored under labor epidural, and delivered by vacuum extraction on 08/16/2021 at 1355. The baby was an 6/9, 8 pound 3 ounce, 20 inch female , who is breast-feeding and has done well. The patient sustained a perineal laceration, which was repaired in the usual fashion. , the patient has done well. She is eating and ambulating, and has had a bowel movement. Her perineum is healing well. Her uterine fundus has involuted well. Her lochia is normal. She is discharged home on the second day on iron vitamins, and on Tylenol and Motrin, as needed for pain. Her hemoglobin on admission was 13.3 g; it is 10.9 g, but she is clinically stable. She is given appropriate instructions as to diet, exercise, and perineal care, and she is to return to Dr. Bonilla's office as scheduled for care. Her blood type is A+. Her rubella titer is immune.) HPI HPI: 26 yo with AVI 08/20/21 39 3/7 with dating by 04/16 ultrasound care [facility]- Dr. Bonilla arrhythmia noted on 20 week anatomy ultrasound [facility] consult with no abnormal findings and normal cardiac anatomy testing reassuring with weekly NST and no arrhythmia detected Hospital Course Rhogam Administration: Not Indicated Objective Vital signs: Temp Pulse Resp BP Pulse Ox 97.8 F 84 18 125/59 L 98 08/18/21 08:31 08/18/21 08:31 08/18/21 08:31 08/18/21 08:31 08/18/21 08:31 DS: Diagnosis - Discharge Diagnosis (1) 39 weeks gestation of Status: Acute (2) Recurrent loss Status: Acute (3) cardiac arrhythmia Status: Acute (4) Vaginal delivery Status: Acute (5) Anemia associated with acute blood loss Status: Acute Discharge Plan - Patient Discharge Instructions Additional Instructions: Nothing in the vagina for 6 weeks No tub baths Drink plenty of fluids Patient Instructions: Depression, Hemorrhage, DI for Labor and Delivery, Vaginal , DI for Pre-eclampsia, [facility] Post Discharge Instructions, Preventing the Spread of Coronavirus Discharge Instructions - Follow up Plan Follow up with: Marilou Bonilla MD [Staff Physician] - Disposition: Home, Self-Care Condition at discharge:: Stable Home Medications: Home Medications Medication Instructions Recorded Confirmed Type Pnv No.95/Ferrous Fum/Folic AC 1 each PO DAILY 12/27/20 08/16/21 History [ Caplet] Ferrous Sulfate [Slow Fe] 142 mg PO DAILY 08/16/21 08/16/21 History Prescriptions/Medication Reconciliation: No Action Pnv No.95/Ferrous Fum/Folic AC [ Caplet] 1 each PO DAILY Ferrous Sulfate [Slow Fe] 142 mg PO DAILY - Problem Reconciliation Problems Reviewed?: Yes
== END 2021-08-18 12:00 | disposition home or self-care (01) | DRG 806 ==
PROVIDERS: Admitting Provider Nurse Practitioner Obstetrics & Gynecology; PCP Emergency Medicine; Visit Provider Obstetrics & Gynecology
DX: O76 Abnormality in fetal heart rate and rhythm complicating labor and delivery (principal); D62 Acute posthemorrhagic anemia; Z37.0 Single live birth; Z3A.39 39 weeks gestation of pregnancy; O70.1 Second degree perineal laceration during delivery; O90.81 Anemia of the puerperium
CPT/HCPCS: 59409; 59025; 80305; 81001; 85007; 85014; 85018; 85048; 85049; 86850; 94761; C1758; C9803; G0283; J2405; U0003; U0005

== ENCOUNTER → 2023-01-09 10:44 | Outpatient (CLI) | payer BC, SELFPAY ==
[2023-01-09 12:51] LABS: HCG,Quantitative 148 mIU/ml (0-5.42)
[2023-01-10 10:17] LABS: Progesterone 9.8 ng/mL (.)
== END ==
PROVIDERS: PCP Emergency Medicine; Visit Provider Obstetrics & Gynecology
DX: N92.6 Irregular menstruation, unspecified (principal)
CPT/HCPCS: 36415; 84144; 84702

== ENCOUNTER → 2023-01-15 14:56 | Outpatient (CLI) | payer BC, SELFPAY ==
[2023-01-15 15:38] LABS: Basophils # 0.1 K/mm3 (0-0.2); Basophils % 0.6 % (0.1-2.0); Eosinophils # 0.1 K/mm3 (0.0-0.4); Eosinophils % 1.8 % (0.1-12.0); Hematocrit 40.1 % (37.0-47.0); Hemoglobin 13.8 g/dL (12.2-16.2); Lymphocytes # 1.6 K/mm3 (0.7-4.5); Lymphocytes % 20.8 % (10-50); Mean Corpuscular HGB Conc 34.4 g/dL (31.8-35.4); Mean Corpuscular Hemoglobin 31.2 pg (27.0-31.2); Mean Corpuscular Volume 90.8 fl (81-99); Mean Platelet Volume 8.3 fl (7.4-10.4); Monocytes # 0.3 K/mm3 (0.1-1.0); Monocytes % 3.8 % (1.7-9.3); Neutrophils # 5.8 K/mm3 (1.8-7.8); Neutrophils % 73.1 % (37.0-80.0); Platelet Count 242 K/mm3 (142-424); Red Blood Count 4.42 M/mm3 (4.20-5.40); Red Cell Distribution Width 12.6 % (11.5-17.5); White Blood Count 7.9 K/mm3 (4.8-10.8)
[2023-01-15 16:09] LABS: HCG,Quantitative 3028 mIU/ml (0-5.42)
[2023-01-17 10:09] LABS: HIV Screen 4th Generation wRfx Non Reactive (Non Reactive); Rubella Antibodies, IgG 5.52 index (Immune >0.99)
[2023-01-17 11:14] LABS: Rapid Plasma Reagin Ab Titer Non Reactive titer (NonRea<1:1)
[2023-01-17 22:28] LABS: Neisseria gonorrhoeae, NAA Negative (Negative)
[2023-01-20 09:47] LABS: Hepatitis B Surface Antigen Negative
[2023-01-20 09:48] LABS: Hepatitis C Antibody Non Reactive
== END ==
PROVIDERS: PCP Emergency Medicine; Visit Provider Obstetrics & Gynecology
DX: Z34.91 Encounter for supervision of normal pregnancy, unspecified, first trimester (principal); Z3A.01 Less than 8 weeks gestation of pregnancy
CPT/HCPCS: 36415; 84702; 85025; 86593; 86703; 86762; 86850; 87086; 87340; 87380; 87491; 87591; G0432

== ENCOUNTER → 2023-01-24 10:40 | Outpatient (CLI) | payer BC, SELFPAY ==
--- NOTE | 2023-01-24 10:53 | US_ITS ---
PROCEDURE: US OB <= 14 WEEKS FETUS CLINICAL INDICATION: for dates COMPARISON: No exams were available for comparison FINDINGS: Transvaginal sonographic images of the pelvis were obtained. From her last menstrual period she is 7weeks 4days. An intrauterine gestational sac is present with a pole with a crown-rump length of 0.21cm This correlates to a gestational age of 5weeks 6days. heart tones are present with an FHR of 97bpm. Yolk sac is noted. The yolk sac measures 5.1mm. A small nabothian cyst is seen measuring 0.6 cm. The right ovary is seen and appears normal. The left ovary is seen and appears normal. There is a corpus luteum on the left ovary. There is no fluid in the cul-de-sac. IMPRESSION: 1. Viable fetus within the uterine cavity measuring 5 weeks 6 days.. 2. heart tones are present. 3. The dates are off by 2 weeks and her due date should be adjusted to reflect this. 4. Her revised due date will be September 20, 2023. Dictated by: Emanuel Jarrell MD 01/26/2023 11:42 Emanuel Jarrell MD in [facility] 01/26/2023 11:42
[2023-01-24 14:27] LABS: HCG,Quantitative 28356 mIU/ml (0-5.42)
== END ==
LOC: RAD 10:41
PROVIDERS: PCP Emergency Medicine; Visit Provider Obstetrics & Gynecology
DX: Z34.91 Encounter for supervision of normal pregnancy, unspecified, first trimester (principal)
CPT/HCPCS: 36415; 76801; 84702

== ENCOUNTER 2023-04-30 12:49 | Outpatient (CLI) | payer BC, SELFPAY ==
--- NOTE | 2023-04-30 12:49 | US_ITS ---
PROCEDURE: US OB /MATERNAL DETAIL CLINICAL INDICATION: 20 week anatomy scan COMPARISON: US US OB <= 14 WEEKS FETUS from 01/24/2023 FINDINGS: Transabdominal sonographic images of the pelvis were obtained. From her established due date she is 19 weeks 4 days. Single viable intrauterine gestation. Breech position. Placenta: Anteriorplacenta grade 1. There is an average amount of fluid. The cervix appears satisfactory. Closed and measuring 2.8 cm in length. Complete survey performed and was unremarkable on the submitted images as in PACS. No discrete anomalies identified on survey imaging by technologist. Active fetus. Three-vessel cord with satisfactory umbilical cord insertion. 4- chamber heart noted. [place], aortic arch, RVOT appear normal. Survey of brain & ventricles Unremarkable. Cerebellum, thalamus, choroid plexus, cisterna magna appear normal. Face and neck survey unremarkable. nasion, lips and nose appeared normal. Diaphragm and chest views unremarkable. Abdomen: Both kidneys noted and unremarkable. Stomach and bladder noted and satisfactory. Spine: Survey of the spine satisfactory with no anomalies identified nor imaged. Cervical, thoracic, lower spine appear normal. Both arms and legs noted. Amniotic Fluid: Adequate. Measurements: Average ultrasound age 20weeks. Estimated due date by ultrasound age 0709/17/2023. Estimated weight 313g BPD = 20weeks 2days HC = 19weeks 6days AC = 19weeks 6days FL = 19weeks 6days Growth Percentile= 58 Heart Rate = 149bpm Cerebellum = 19weeks 5days Humerus = 20weeks HC/AC is 1.2 FL/BPD is 0.67 FL/AC is 0.22 IMPRESSION: 1. Viable fetus in the breech presentation with an anterior placenta grade 1. 2. Fluid is within normal limits. 3. Anatomical scan appears normal. 4. biometry is consistent with the dates. 5. cardiac scan and profile views were incomplete due to position. Suggest follow-up ultrasound in 2-4 weeks. Dictated by: Emanuel Jarrell MD 05/01/2023 06:18 Emanuel Jarrell MD in [facility] 05/01/2023 06:18
== END 2023-04-30 23:59 ==
LOC: RAD 12:49
PROVIDERS: PCP Emergency Medicine; Visit Provider Obstetrics & Gynecology
DX: O26.892 Other specified pregnancy related conditions, second trimester (principal); Z3A.19 19 weeks gestation of pregnancy
CPT/HCPCS: 76811

== ENCOUNTER 2023-05-29 13:53 | Outpatient (CLI) | payer BC, SELFPAY ==
--- NOTE | 2023-05-29 13:54 | US_ITS ---
PROCEDURE: US OB FOLLOW UP CLINICAL INDICATION: cardiac scan profile views are incomplete COMPARISON: US US OB /MATERNAL DETAIL from 04/30/2023 FINDINGS: Transabdominal sonographic images of the pelvis were obtained. The following parameters are obtained: From her established due date she is 23weeks 5days Viable fetus in the breech presentation with an anterior placenta grade 1. The cervix measures 3.3 cm. heart rate: 160bpm bpm. Amniotic fluid appears normal. No obvious anomalies evident. Active fetus. profile seen, nasion, kidneys, three-vessel cord appear normal. heart appears normal with 3 vessel view, RVOT, LVOT and four-chambers view appearing normal. IMPRESSION: 1. Viable, active fetus in the breech presentation with an anterior placenta grade 1. 2. The limited anatomical scan appears normal. Cardiac scan today reveals a normal study. 3. profile and nasion are seen and appear normal. 4. The fluid is within normal limits. Dictated by: Emanuel Jarrell MD 05/30/2023 12:35 Emanuel Jarrell MD in [facility] 05/30/2023 12:35
== END 2023-05-29 23:59 ==
LOC: RAD 13:54
PROVIDERS: PCP Internal Medicine; Visit Provider Obstetrics & Gynecology
DX: O26.892 Other specified pregnancy related conditions, second trimester (principal); Z3A.23 23 weeks gestation of pregnancy
CPT/HCPCS: 76816

== ENCOUNTER 2023-06-14 08:47 | Outpatient (CLI) | payer BC, SELFPAY ==
[2023-06-14 09:03] LABS: Basophils # 0.1 K/mm3 (0-0.2); Basophils % 0.6 % (0.1-2.0); Eosinophils # 0.3 K/mm3 (0.0-0.4); Eosinophils % 2.2 % (0.1-12.0); Hematocrit 38.4 % (37.0-47.0); Hemoglobin 12.6 g/dL (12.2-16.2); Lymphocytes # 1.6 K/mm3 (0.7-4.5); Lymphocytes % 11.5 % (10-50); Mean Corpuscular HGB Conc 32.9 g/dL (31.8-35.4); Mean Corpuscular Hemoglobin 32.2 pg (27.0-31.2); Mean Platelet Volume 8.5 fl (7.4-10.4); Monocytes # 0.4 K/mm3 (0.1-1.0); Monocytes % 2.6 % (1.7-9.3); Neutrophils # 11.7 K/mm3 (1.8-7.8); Platelet Count 279 K/mm3 (142-424); Red Blood Count 3.92 M/mm3 (4.20-5.40); Red Cell Distribution Width 13.7 % (11.5-17.5); White Blood Count 14.1 K/mm3 (4.8-10.8)
[2023-06-14 09:16] LABS: Glucose,Fasting 96 mg/dl (74-100)
[2023-06-14 10:28] LABS: Glucose 1 Hour 127 mg/dL (74-100)
== END 2023-06-14 23:59 ==
LOC: LAB 08:48
PROVIDERS: PCP Internal Medicine; Visit Provider Obstetrics & Gynecology
DX: O26.893 Other specified pregnancy related conditions, third trimester (principal); Z3A.27 27 weeks gestation of pregnancy
CPT/HCPCS: 36415; 82951; 85025

== ENCOUNTER 2023-08-19 12:54 | Outpatient (CLI) | payer BC, SELFPAY ==
--- NOTE | 2023-08-19 12:54 | US_ITS ---
PROCEDURE: US OB FOLLOW UP CLINICAL INDICATION: for position COMPARISON: US US OB /MATERNAL DETAIL from 04/30/2023 US US OB FOLLOW UP from 05/29/2023 FINDINGS: Transabdominal sonographic images of the pelvis were obtained. The following parameters are obtained: From her established due date she is 35weeks 3days Viable fetus in the cephalic presentation with an anterior placenta grade 2. The cervix measures 4.0 cm. heart rate: 127bpm bpm. weight 3014 grams, 6 lb 10 oz. BPD: 36weeks 6days, 87 percentile HC: 36weeks 5days, 47 percentile AC: 36weeks 6days, 89 percentile FL: 36weeks 5days, 76 percentile HC/AC: 0.99 FL/BPD: 0.79 FL/AC: 0.22 Growth percentile: 83 Amniotic fluid index: 11.39cm, MVP 6.41 cm. No obvious anomalies evident. Stomach, bladder, kidneys, three-vessel cord, four chamber heart appear normal. IMPRESSION: 1. Viable fetus in the cephalic presentation with an anterior placenta grade 2. 2. The fluid is within normal limits with an amniotic fluid index of 11.39 cm, MVP 6.41 cm. 3. There has been good interval growth with the fetus currently 83rd percentile. 4. Limited anatomical scan appears normal. Dictated by: Emanuel Jarrell MD 08/19/2023 17:27 Emanuel Jarrell MD in [facility] 08/19/2023 17:27
== END 2023-08-19 23:59 | disposition home or self-care (01) ==
LOC: RAD 12:54
PROVIDERS: PCP Internal Medicine; Visit Provider Obstetrics & Gynecology
DX: O32.1XX0 Maternal care for breech presentation, not applicable or unspecified (principal); Z3A.35 35 weeks gestation of pregnancy
CPT/HCPCS: 76816

== ENCOUNTER 2023-08-26 17:01 | Outpatient (CLI) | payer BC, SELFPAY | END 2023-08-26 23:59 | disposition home or self-care (01) | LOC: LAB.DROPOF 17:01 | PROVIDERS: PCP Obstetrics & Gynecology; Visit Provider Obstetrics & Gynecology | DX: O26.893 Other specified pregnancy related conditions, third trimester (principal); Z3A.36 36 weeks gestation of pregnancy | CPT/HCPCS: 86403 ==

== ENCOUNTER 2023-09-13 04:01 | Inpatient (IN) | payer BC, SELFPAY ==
[2023-09-13 04:05] VITALS: BMI 30.8
[2023-09-13 04:18] VITALS: BP 116/72; PULSE 101; RESP 18; TEMP 36.8; O2SAT 98; BMI 30.8
[2023-09-13 04:54] LABS: Microscopic, Urine URINE MICROSCOPIC (MICROSCOPIC)
[2023-09-13 04:56] LABS: Basophils # 0.1 K/mm3 (0-0.2); Basophils % 0.4 % (0.1-2.0); Eosinophils # 0.3 K/mm3 (0.0-0.4); Eosinophils % 2.5 % (0.1-12.0); Hematocrit 33.1 % (37.0-47.0); Hemoglobin 10.9 g/dL (12.2-16.2); Lymphocytes # 1.8 K/mm3 (0.7-4.5); Mean Corpuscular HGB Conc 32.9 g/dL (31.8-35.4); Mean Corpuscular Hemoglobin 29.4 pg (27.0-31.2); Mean Corpuscular Volume 89.3 fl (81-99); Mean Platelet Volume 8.8 fl (7.4-10.4); Monocytes # 0.4 K/mm3 (0.1-1.0); Monocytes % 3.4 % (1.7-9.3); Neutrophils # 8.8 K/mm3 (1.8-7.8); Neutrophils % 77.7 % (37.0-80.0); Platelet Count 231 K/mm3 (142-424); Red Blood Count 3.71 M/mm3 (4.20-5.40); Red Cell Distribution Width 14.7 % (11.5-17.5); White Blood Count 11.3 K/mm3 (4.8-10.8)
[2023-09-13] MEDS: DEXTROSE 5%-LACTATED RINGERS 1,000 ML 125 ML IV (05:01)
[2023-09-13] MEDS: OXYTOCIN/RINGERS LACTATE 30 UNITS/500 ML BAG IV (05:01)
[2023-09-13] MEDS: LACTATED RINGERS 1000ML 1,000 ML 500 ML IV (05:02)
[2023-09-13 05:15] LABS: Barbiturates Screen,Urine Negative ng/ml (<200)
[2023-09-13 05:16] LABS: Amphetamine/Metha Screen,Urine Negative ng/ml (<1000); Benzodiazepines Screen,Urine Negative ng/ml (<200)
[2023-09-13 05:17] LABS: Cannabinoid Screen,Urine Negative ng/ml (<50)
[2023-09-13 05:18] LABS: Methadone Screen,Urine Negative ng/ml (<300); Opiate Screen,Urine Negative ng/ml (<300)
[2023-09-13 05:19] LABS: Phencyclidine Screen,Urine Negative ng/ml (<25)
[2023-09-13 05:38] LABS: Appearance,Urine CLEAR (Clear); Bilirubin,Urine Negative (Negative); Blood, Urine Negative (Negative); Color,Urine YELLOW (Yellow); Glucose,Urine (UA) Negative (Negative); Ketones,Urine Negative (Negative); Leukocyte Esterase,Urine 1+ (Negative); Nitrate,Urine Negative (Negative); Protein,Urine Negative (Negative); Urobilinogen,Urine 0.2 EU/dl (0.2)
[2023-09-13 05:49] LABS: Squamous Epithelial Cell,Urine TNTC #/hpf (0-5)
[2023-09-13 05:50] LABS: Amorphous Sediment,Urine 1+ /lpf; Bacteria,Urine Trace /lpf
[2023-09-13 06:23] LABS: Cocaine Screen,Urine Negative ng/ml (<300)
[2023-09-13 07:36] VITALS: BP 115/72; PULSE 88; RESP 18; TEMP 36.7; O2SAT 99
[2023-09-13] MEDS: DEXTROSE 5%-LACTATED RINGERS 1,000 ML 500 ML IV (09:10)
--- NOTE | 2023-09-13 09:52 | P.PNANES_ITS ---
[facility] Disclaimer: The information contained in this section may have been updated after the patient was seen, as this information can be updated by other users. Medical History Obstetric vaginal laceration 2nd degree perineal bilateral sulcus lacerations Recurrent loss Surgical History No history of previous surgery Family History Other Thyroid disorder Social History (Updated 09/13/23 @ 04:21 by Maria Teresa Vaca RN) Smoking Status: Never smoker alcohol intake: never substance use type: denies use current occupational status: unemployed Travel in the last 8 weeks: None household members: spouse housing: house current occupational exposures/hazards: No caffeine: No [facility] Anesthesia Checklist Patient Identification Patient Identification: Arm Band Structural Data Admitted From: Home Planned Operative Procedure/s: Labor Epidural Consent for Planned Operative Procedure(s) Verified: Yes Verified Documents: Surgical Consent and History and Physical Additional verifications Anesthesia Reactions: No Hx Blood Transfusions: No Blood Transfusion Reaction: No Neurological Assessment Level of Consciousness: Awake, Alert and Appropriate Anesthesia Plan Anesthesia Risk discussed: Yes Anesthesia Plan: Verified ASA Class: II Anesthesia Type: Epidural
[2023-09-13] MEDS: ONDANSETRON 4MG/2ML VIAL 4 MG IV (10:05)
--- NOTE | 2023-09-13 10:10 | P.HP_ITS ---
History of Present Illness *Admission Date: 09/13/23 *Reason for visit:: Induction *History of present illness: Blanche Haque is a 28-year-old G [id number] at 39 weeks and 0 days gestation who presented to labor and delivery for a scheduled induction. She has an AVI of 09/20/2023 based on 5-week ultrasound. This is complicated by history of a vacuum extraction. On arrival to the hospital the patient endorsed good movement, denies leakage of fluid, vaginal bleeding, or contractions. A+, antibody negative, rubella immune, hepatitis B negative, hepatitis C negative, RPR negative, HIV negative 1 hour GTT: 127 GBS negative PFSH PFSH Disclaimer: The information contained in this section may have been updated after the patient was seen, as this information can be updated by other users. Medical History Obstetric vaginal laceration 2nd degree perineal bilateral sulcus lacerations Recurrent loss Surgical History No history of previous surgery Family History Other Thyroid disorder Social History (Updated 09/13/23 @ 04:21 by Maria Teresa Vaca RN) Smoking Status: Never smoker alcohol intake: never substance use type: denies use current occupational status: unemployed Travel in the last 8 weeks: None household members: spouse housing: house current occupational exposures/hazards: No caffeine: No Review of Systems Review of Systems Review of systems (narrative): Review of Systems Constitutional: Denies fever, chills, and sweats Eyes: Denies vision change/ pain Respiratory: Denies cough and shortness of breath Cardiovascular: Denies chest pain and lightheadedness Gastrointestinal: Denies abdominal pain. Denies nausea, vomiting. Genitourinary: Denies dysuria and incontinence Musculoskeletal: Denies shoulder pain and back pain Neurological: Denies change in speech or headaches Meds Home Medications and Allergies Home Medications Medication Instructions Recorded Confirmed Type vits no.126-ferrous fum tab PO DAILY 11/28/22 09/09/23 History 28 mg iron-folic acid 800 mcg tablet (Classic ) New Prescriptions to Start Prescriptions: Allergies Allergy/AdvReac Type Severity Reaction Status Date / Time No Known Allergies Allergy Verified 09/13/23 04:20 Exam Data for Last 24 hours Vital signs and Labs for Last 24 Hours: Temp Pulse Resp BP Pulse Ox O2 Del Method 98.1 F 88 18 115/72 99 Room Air 09/13/23 07:36 09/13/23 07:36 09/13/23 07:36 09/13/23 07:36 09/13/23 07:36 09/13/23 07:36 Laboratory Results - last 24 hr 09/13/23 04:10: Urine Color Yellow, Urine Appearance Clear, Urine pH 6.0, Ur Specific [place] 1.020, Urine Protein Negative, Urine Glucose (UA) Negative, Urine Ketones Negative, Urine Blood Negative, Urine Nitrate Negative, Urine Bilirubin Negative, Urine Urobilinogen 0.2, Ur Leukocyte Esterase 1+ A, Urine WBC 3-5, Ur Squamous Epith Cells Tntc, Amorphous Sediment 1+, Urine Bacteria Trace, Urine Opiates Screen Negative, Urine Methadone Screen Negative, Ur Barbituates Screen Negative, Ur Phencyclidine Scrn Negative, Ur Amphetamines Screen Negative, U Benzodiazepines Scrn Negative, Urine Cocaine Screen Negative, U Marijuana (THC) Screen Negative 09/13/23 04:40: WBC 11.3 H, RBC 3.71 L, Hgb 10.9 L, Hct 33.1 L, MCV 89.3, MCH 29.4, MCHC 32.9, RDW 14.7, Plt Count 231, MPV 8.8, Neut % (Auto) 77.7, Lymph % (Auto) 16.0, [place] % (Auto) 3.4, Eos % (Auto) 2.5, Baso % (Auto) 0.4, Neut # (Auto) 8.8 H, Lymph # (Auto) 1.8, [place] # (Auto) 0.4, Eos # (Auto) 0.3, Baso # (Auto) 0.1, Blood Type A Positive, Antibody Screen Negative I & O for Last 24 hours: Intake & Output 09/10/23 09/11/23 09/12/23 09/13/23 23:59 23:59 23:59 23:59 Weight 197 lb Narrative: General: patient is alert oriented in no acute distress and responds appropriately to questions. HEENT: NCAT, EOMI, moist mucous membranes, neck supple with full ROM Cardiovascular: RRR +S1/S2, no murmurs or rubs Pulmonary: Clear to auscultation bilaterally, nonlabored breathing, symmetric chest rise Abdominal: Gravid abdomen appropriate for gestation. No guarding, rebound, or tenderness noted. SVE: 5/70/-2 On admission Extremities: trace edema, no tenderness or cyanosis noted Skin: Normal turgor, intact, warm. Negative for erythema, pallor, petechia, or lesions Neurologic: Negative for sensory or motor deficit Psychiatric: Normal affect, normal thought process, good judgment and insight, no depression or anxious mood appreciated. *Routine HEENT Exam Head: Present normocephalic and atraumatic Eye: Present EOMI, PERRL and normal accommodation; Absent conjunctival icterus, scleral injection, nystagmus or exophthalmos ENT: Present mucous membranes moist *Routine Respiratory Exam Respiratory: Present CTA bilaterally, normal respiratory effort, able to speak in complete sentences and symmetric chest movement; Absent accessory muscle use, decreased breath sounds, rales, respiratory distress, wheezes, distant breath sounds or diminished air movement *Routine Cardiovascular Exam Cardiovascular: Present RRR, Normal S1 and Normal S2; Absent murmur or gallop *Routine Abdominal Exam Abdominal: Present soft and normoactive bowel sounds; Absent tenderness, distended, rebound or guarding *Routine Rectal Exam Rectal:: deferred *Routine Genitalia Exam Genitalia:: normal female Assessment and Plan *Assessment and plan (1) : Status: Acute Category: Medical Code(s): Z34.90 - Encounter for supervision of normal , unspecified, unspecified trimester Plan - Monitor vitals - Admit to L&D for induction of labor - Plan for induction with Pitocin, per protocol - External FHR and TOCO monitor - GBS neg/ Blood type: A+ - Hemoglobin: 10.9, Plt: 231 - Plan for epidural - Anticipate vaginal delivery of female infant: Harinder
[2023-09-13] MEDS: OXYTOCIN/RINGERS LACTATE 30 UNITS/500 ML BAG 999 UNITS IV (11:30)
--- NOTE | 2023-09-13 12:03 | EXP.DN ---
Delivery Note Delivery Date:: 09/13/23 Delivery Time:: 11:46 Anesthesia Type: Epidural Was labor medically induced?: Yes Induction method: per pitocin protocol Gestational age (weeks): 39 delivered prior to 39 weeks?: No Infant Gender: Female at 1 minute: 8 at 5 minutes: 9 LAC or MLE?: LAC Delivery Procedure:: Preoperative diagnosis: 1. at 39 completed this weeks gestation, vertex 2. Rh positive 3. GBS negative 4. Elective Induction of labor 00 at the hospital delivery Postoperative diagnosis: 1. at 39 completed this weeks gestation, vertex 2. Rh positive 3. GBS negative 4. Elective Induction of labor 00 at the hospital delivery EBL: 150mL Specimen: 1. Cord blood Findings: 1. Liveborn viable female : Harinder. Apgars 8/9 at 1 and 5 minutes respectively. Weight pending at time of dictation 2. Periclitoral laceration Complications: None Procedure: Nonoperative spontaneous vaginal delivery Blanche Lundberg is a 28-year-old -0-2-1 presented to labor and delivery for an elective induction of labor at term. She is 39 weeks and 0 days gestation. has been uncomplicated. She received Pitocin, per protocol for induction. She experienced artificial rupture membranes revealing clear fluid. She received an epidural for anesthesia. Blanche progressed to complete. The was noted to be in OA position. With effective maternal pushing there was a nonoperative spontaneous vaginal delivery. There was no nuchal cord. Infant restituted so that the the anterior right shoulder delivered, followed by the posterior shoulder without dystocia. The body and lower extremities delivered without difficulty. The infant was bulb suctioned and was crying immediately following delivery. The was placed on the maternal abdomen and greater than one minute was appreciated for delayed cord clamping. The umbilical cord was doubly clamped and cut. Cord blood was collected and sent for routine testing. The placenta delivered with cord traction and suprapubic contertraction. Pitocin was started and the placenta and cord were inspected. The uterus was firm and bleeding was minimal. The perineum, vaginal price, cervix, and paraurethral area were inspected thoroughly. There was a small periclitoral abrasion and a small first-degree midline perineal laceration. The lacerations were repaired in the usual fashion using 3-0 Vicryl suture each with a single stitch. The laceration was hemostatic. The cervix and vaginal price were inspected and noted to be hemostatic. This concluded the delivery. The patient was counseled regarding the events of the delivery and repair. The patient tolerated the delivery well. All counts were correct by nursing. Mother and were doing well and bonding upon my leaving the delivery room. Laceration:: vaginal Placental Delivery Description: Spontaneous
[2023-09-13] MEDS: ACETAMINOPHEN 500MG TAB 1000 MG PO ×2 (12:48→20:31)
[2023-09-13] MEDS: IBUPROFEN 400 MG TABLET 800 MG PO ×2 (12:48→20:31)
[2023-09-13] MEDS: BENZOCAINE-MENTHOL SPRAY 56GM CAN TP (12:49)
[2023-09-13] MEDS: WITCH HAZEL 40 PADS/BOX 1 EACH TP (12:50)
[2023-09-13] MEDS: PRENATAL MULTIVITAMIN W/IRON 1 EACH PO (16:45)
[2023-09-13] MEDS: SENNA 8.6MG TABLET 8.59999999999999964 MG PO (16:45)
[2023-09-14] MEDS: ACETAMINOPHEN 500MG TAB 1000 MG PO (04:19)
[2023-09-14] MEDS: IBUPROFEN 400 MG TABLET 800 MG PO (04:20)
[2023-09-14 06:43] LABS: Basophils % 0.3 % (0.1-2.0); Eosinophils # 0.2 K/mm3 (0.0-0.4); Eosinophils % 1.7 % (0.1-12.0); Hemoglobin 10.4 g/dL (12.2-16.2); Lymphocytes # 1.6 K/mm3 (0.7-4.5); Lymphocytes % 12.8 % (10-50); Mean Corpuscular HGB Conc 33.5 g/dL (31.8-35.4); Mean Corpuscular Hemoglobin 29.9 pg (27.0-31.2); Mean Corpuscular Volume 89.3 fl (81-99); Monocytes # 0.5 K/mm3 (0.1-1.0); Monocytes % 4.1 % (1.7-9.3); Neutrophils # 9.8 K/mm3 (1.8-7.8); Platelet Count 239 K/mm3 (142-424); Red Blood Count 3.47 M/mm3 (4.20-5.40); Red Cell Distribution Width 14.8 % (11.5-17.5); White Blood Count 12.1 K/mm3 (4.8-10.8)
[2023-09-14 08:00] VITALS: BP 121/61; PULSE 83; RESP 18; TEMP 36.8; O2SAT 98
--- NOTE | 2023-09-14 13:07 | EXP.DC.SUM ---
General Admission date:: 09/13/23 Discharge date: 09/14/23 HPI HPI HPI: Blanche Lundberg is a 28-year-old G [id number] at 39 weeks and 0 days gestation who presented to labor and delivery for a scheduled induction. She has an AVI of 09/20/2023 based on 5-week ultrasound. This is complicated by history of a vacuum extraction. On arrival to the hospital the patient endorsed good movement, denies leakage of fluid, vaginal bleeding, or contractions. A+, antibody negative, rubella immune, hepatitis B negative, hepatitis C negative, RPR negative, HIV negative 1 hour GTT: 127 GBS negative Hospital Course Hospital Course Hospital Course: Blanche is a 28-year-old -0-2-2 day #1 from an elective induction at 39 weeks gestation. and delivery were uncomplicated. She is doing well this morning -Reports pain is well-controlled -Reports she is tolerating p.o. without nausea or vomiting. -Reports her lochia is absent. -Desires Nexplanon for contraception. She has previously used this -Reports she has not been sexually active since delivery -Denies any perineal pain or complications from her delivery. -Ambulating, voiding difficulty or dysuria. Denies chest pain shortness of breath or pain in her legs. No further complaints at this time. Patient desires discharge home. Routine discharge instructions reviewed with patient in detail and she was understanding. She delivered a female infant on 09/13/2023 at 1146. weighed 8 pounds 10 ounces and was 19-1/2 inches long. Apgars were 8 and 9. EBL was 150 mL and she is bottlefeeding her female . She is rubella immune, GBS negative, and a positive blood type. She will be discharged home and follow-up with myself in 2 weeks Exam Data for Last 24 hours Vital signs and Labs for Last 24 Hours: Temp Pulse Resp BP Pulse Ox O2 Del Method 98.3 F 83 18 121/61 98 Room Air 09/14/23 08:00 09/14/23 08:00 09/14/23 08:00 09/14/23 08:00 09/14/23 08:00 09/14/23 08:00 Laboratory Results - last 24 hr 09/14/23 06:20: WBC 12.1 H, RBC 3.47 L, Hgb 10.4 L, Hct 31.0 L, MCV 89.3, MCH 29.9, MCHC 33.5, RDW 14.8, Plt Count 239, MPV 9.0, Neut % (Auto) 81.0 H, Lymph % (Auto) 12.8, [place] % (Auto) 4.1, Eos % (Auto) 1.7, Baso % (Auto) 0.3, Neut # (Auto) 9.8 H, Lymph # (Auto) 1.6, [place] # (Auto) 0.5, Eos # (Auto) 0.2, Baso # (Auto) 0.0 I & O for Last 24 hours: Intake & Output 09/11/23 09/12/23 09/13/23 09/14/23 23:59 23:59 23:59 23:59 Weight 197 lb Narrative: General: patient is alert oriented in no acute distress and responds appropriately to questions. Appears to be in minimal pain. Sitting up in the bed and doing well HEENT: NCAT, EOMI, moist mucous membranes, neck supple with full ROM Cardiovascular: RRR +S1/S2, no murmurs or rubs Pulmonary: Clear to auscultation bilaterally, nonlabored breathing, symmetric chest rise Abdominal: Fundus below the umbilicus, firm, and tenderness appropriate for the period. Extremities: trace edema, no tenderness or cyanosis noted Skin: Normal turgor, intact, warm. Negative for erythema, pallor, petechia, or lesions Neurologic: Negative for sensory or motor deficit Psychiatric: Normal affect, normal thought process, good judgment and insight, no depression or anxious mood appreciated. Results Data Completed and Pending Labs on day of discharge: Labs from last 24 hours 09/14/23 06:20 WBC 12.1 H RBC 3.47 L Hgb 10.4 L Hct 31.0 L MCV 89.3 MCH 29.9 MCHC 33.5 RDW 14.8 Plt Count 239 MPV 9.0 Neut % (Auto) 81.0 H Lymph % (Auto) 12.8 [place] % (Auto) 4.1 Eos % (Auto) 1.7 Baso % (Auto) 0.3 Neut # (Auto) 9.8 H Lymph # (Auto) 1.6 [place] # (Auto) 0.5 Eos # (Auto) 0.2 Baso # (Auto) 0.0 DS: Diagnosis Discharge Diagnosis (1) : Status: Acute Code(s): Z34.90 - Encounter for supervision of normal , unspecified, unspecified trimester Meds Home Medications and Allergies Home Medications Medication Instructions Recorded Confirmed Type vits no.126-ferrous fum 1 tab PO DAILY 11/28/22 09/13/23 History 28 mg iron-folic acid 800 mcg tablet (Classic ) acetaminophen 500 mg tablet 500 mg PO Q6H PRN fever #30 tabs 09/13/23 Rx ferrous sulfate 325 mg (65 mg 325 mg PO DAILY #30 tabs 09/13/23 Rx iron) tablet,delayed release ibuprofen 800 mg tablet 800 mg PO Q8H PRN pain #60 tabs 09/13/23 Rx sennosides 8.6 mg tablet (Senna 8.6 mg PO BIDP PRN Constipation 09/13/23 Rx Lax) #60 tabs New Prescriptions to Start Prescriptions: acetaminophen Nicole Del Angel ferrous sulfate Nicole Del Angel ibuprofen Nicole Del Angel sennosides [Senna Lax] Nicole Del Angel Allergies Allergy/AdvReac Type Severity Reaction Status Date / Time No Known Allergies Allergy Verified 09/13/23 04:20 Discharge Plan Disposition Patient Disposition: Home, Self-Care Discharge Order Discharge Orders: Discharge Order (Routine); Ordered 09/14/23 Ordered By: Nicole Del Angel Follow up Plan Follow up with: Nicole Del Angel DO [Staff Physician] - 2 weeks Prescriptions/Medication Reconciliation: New sennosides [Senna Lax] 8.6 mg Tablet 8.6 mg PO BIDP PRN (Reason: Constipation) Qty: 60 2RF ibuprofen 800 mg tablet 800 mg PO Q8H PRN (Reason: pain) Qty: 60 2RF acetaminophen 500 mg tablet 500 mg PO Q6H PRN (Reason: fever) Qty: 30 3RF ferrous sulfate 325 mg (65 mg iron) tablet,delayed release (DR/EC) 325 mg PO DAILY Qty: 30 3RF Continued Classic 28 mg iron- 800 mcg tablet 1 tab PO DAILY Problem Reconciliation Problems Reviewed?: Yes Patient Discharge Instructions ACTIVITY: Continue current activity DIET: regular diet Additional Instructions: Congratulations on the delivery of your sweet baby girl. It is my privilege to be your doctor and I am so thankful I could be a part of your special day. Discharge: -Take 800 mg Ibuprofen every 8 hours as needed for pain. You can also take 500-1000 mg of Tylenol in between doses, every 6-8 hours. -Colace can be taken 1-2 times per day as you need to soften your stool. Make sure to drink at least 8 cups of water per day. -Iron supplements can make you constipated. You can take iron tablets every other day if constipation is too bad. -Nothing in the vagina for 6 weeks - no sex, douching, tampons. No tub baths -Do not lift greater than 15 pounds for 6 weeks, this is the equivalent of 2 gallons of milk. -Reasons to return to L&D or call On-Call doctor - fever (greater than 100.4) - heavy vaginal bleeding (soaking through 1 pad in less than 2 hours or passing clots that are egg sized) - vaginal discharge (malodorous and/or purulent) - severe headaches, leg tenderness/edema, or any other symptoms that warrant immediate medical attention. depression/blues - Normal to feel anxious/overwhelmed for first 2 weeks - Talk to your doctor if: anxiety lasts over 2 weeks, trouble bonding with baby, withdrawing from other family members, thoughts of harming yourself or others Nicole Del Angel DO [facility] [phone] *Nothing in the Vagina for 6 weeks* *No strenuous activity* *No heavy lifting* *No tub baths until okay's by MD* Providers Primary Care Provider: Provider,Referral Admit Provider: Nicole Del Angel Attending Provider: Nicole Del Angel
== END 2023-09-14 16:50 | disposition home or self-care (01) | DRG 768 ==
PROVIDERS: Admitting Provider Obstetrics & Gynecology; Visit Provider Obstetrics & Gynecology
DX: O70.0 First degree perineal laceration during delivery (principal); Z37.0 Single live birth; O71.82 Other specified trauma to perineum and vulva
CPT/HCPCS: 59409; 36415; 59025; 80307; 81001; 85025; 86850; 87086; 94761; G0283; J2405; J3010; J7120

== ENCOUNTER 2023-12-10 18:05 | Observation (INO) | payer BC, SELFPAY ==
[2023-12-10] VITALS (10 sets, daily range): BP systolic 106–123; BP diastolic 72–93; PULSE 61–84; RESP 13–18; TEMP 36.7; O2SAT 96–98; BMI 27.3
--- NOTE | 2023-12-10 18:28 | PC.NURSE ---
Dr. Leiva at bedside for pt eval
[2023-12-10 18:58] LABS: Basophils % 0.5 % (0.1-2.0); Eosinophils # 0.1 K/mm3 (0.0-0.4); Eosinophils % 0.8 % (0.1-12.0); Hematocrit 40.3 % (37.0-47.0); Hemoglobin 13.8 g/dL (12.2-16.2); Lymphocytes # 1.1 K/mm3 (0.7-4.5); Mean Corpuscular HGB Conc 34.3 g/dL (31.8-35.4); Mean Corpuscular Hemoglobin 28.8 pg (27.0-31.2); Mean Corpuscular Volume 83.8 fl (81-99); Mean Platelet Volume 8.7 fl (7.4-10.4); Monocytes # 0.4 K/mm3 (0.1-1.0); Monocytes % 4.9 % (1.7-9.3); Neutrophils # 5.8 K/mm3 (1.8-7.8); Neutrophils % 78.8 % (37.0-80.0); Platelet Count 252 K/mm3 (142-424); Red Blood Count 4.81 M/mm3 (4.20-5.40); White Blood Count 7.4 K/mm3 (4.8-10.8)
[2023-12-10 18:59] LABS: Alanine Aminotransferase 424 U/L (12-78); Albumin Level 4.5 g/dl (3.5-5.0); Albumin/Globulin Ratio 1.5 (1.1-1.8); Alkaline Phosphatase 193 U/L (38-126); Anion Gap 9.5 mEq/L (5-15); Aspartate Amino Transferase 537 U/L (14-36); Bilirubin,Total 2.5 mg/dl (0.2-1.3); Blood Urea Nitrogen 9 mg/dl (7-17); Calcium 9.1 mg/dl (8.4-10.2); Carbon Dioxide 26 mmol/L (22.0-30.0); Chloride 105 mmol/L (98-107); Creatinine Clearance Estimated 147 mL/min (50-200); Estimated Glomerular Filt Rate 98 ml/min (>60); GFR (African American) 119 ML/MIN (>60); Glucose 127 mg/dl (74-100); Lipase 446 U/L (23-300); Potassium 3.5 mmoL/L (3.5-5.1); Sodium 137 mmol/L (136-145); Total Protein,Serum 7.5 g/dl (6.3-8.2)
[2023-12-10 19:12] LABS: Microscopic, Urine URINE MICROSCOPIC (MICROSCOPIC)
[2023-12-10 19:15] LABS: Appearance,Urine CLEAR (Clear); Blood, Urine 3+ (Negative); Color,Urine YELLOW (Yellow); Glucose,Urine (UA) Negative (Negative); Ketones,Urine Negative (Negative); Leukocyte Esterase,Urine Negative (Negative); Nitrate,Urine Negative (Negative); Protein,Urine TRACE (Negative); Specific Gravity, Urine >= 1.030 (1.005-1.030)
[2023-12-10 19:30] LABS: Bilirubin,Urine Negative (Negative)
[2023-12-10 19:31] LABS: HCG,Quantitative < 2 mIU/ml (0-5.42)
--- NOTE | 2023-12-10 19:34 | CT_ITS ---
PROCEDURE INFORMATION: Exam: CT Abdomen And Pelvis With Contrast Exam date and time: 12/10/2023 8:13 PM Age: 28 years old Clinical indication: Abdominal pain; Additional info: Ruq pain, hematuria, elevated lft TECHNIQUE: Imaging protocol: Computed tomography of the abdomen and pelvis with contrast. Radiation optimization: All CT scans at this facility use at least one of these dose optimization techniques: automated exposure control; mA and/or kV adjustment per patient size (includes targeted exams where dose is matched to clinical indication); or iterative reconstruction. Contrast material: ISOVUE; Contrast volume: 75 ml; Contrast route: IV; COMPARISON: US OB FOLLOW UP 08/19/2023 12:57 PM FINDINGS: Liver: Normal. No mass. Gallbladder and biliary ducts: Contracted gallbladder containing a punctate gallstone. Diffuse gallbladder wall thickening. No biliary ductal dilatation. Pancreas: Normal. No ductal dilation. Spleen: Normal. No splenomegaly. Adrenal glands: Normal. No mass. Kidneys and ureters: Normal. No hydronephrosis. Stomach and bowel: Unremarkable. No obstruction. No mucosal thickening. Appendix: No evidence of appendicitis. Intraperitoneal space: Unremarkable. No free air. No significant fluid collection. Vasculature: Unremarkable. No abdominal aortic aneurysm. Lymph nodes: Unremarkable. No enlarged lymph nodes. Urinary bladder: Unremarkable as visualized. Reproductive: Unremarkable as visualized. Bones/joints: Mild thoracic spine dextroscoliosis. No significant degenerative changes. No focal osseous lesions. Soft tissues: Tiny fat containing umbilical hernia. IMPRESSION: 1. Cholelithiasis with diffuse gallbladder wall thickening. Findings could be due to cholecystitis. It is somewhat atypical for acute cholecystitis to present without gallbladder distension and therefore this could be chronic cholecystitis or potentially secondary to other pathologies including diffuse adenomyomatosis. 2. No biliary ductal dilatation.
--- NOTE | 2023-12-10 19:35 | ED_ITS ---
Discharge Plan Disposition Patient Disposition: Admitted Clinical Impressions Clinical Impression: Choledocholithiasis with acute cholecystitis Discharge ED Provider: Panchito Leiva General Adult HPI General Chief complaint: Abdominal Pain Stated complaint: abdominal pain Time Seen by Provider: 12/10/23 18:22 Mode of Arrival: Ambulatory Source of Information: Patient Limitations: No Limitations Description of Symptoms (Recalled from ER Triage Doc. by RN): pt presents to ED with c/o abdominal pain. pt reports symptoms intermittent for the past 3 weeks. pt reports she had a vaginal delivery 3 months ago. pt reports vaginal bleeding intermittently since having nexplanon placed 2 months ago. History of Present Illness HPI narrative: Please note that above description of symptoms, in this electronic medical record under categorization of recalled from ER triage doctor by RN are reflective of an initial nursing assessment, however, is not reflective of my full history and physical exam that was personally taken and clarified. Consequentially, this preceding description of symptoms, which may include the patient's categorized chief complaint in the EMR, do not reflect my personal clinical impression, and the ultimate description of history of present illness and patient stated complaints should be deferred to this section of the note. Unless stated otherwise or congruent with this section of the note, additional signs, symptoms, or incongruence should be interpreted as inaccurate with my clinical impression. Related Data Home Medications ?Medication ?Instructions ?Recorded ?Confirmed vits no.126-ferrous fum 1 tab PO DAILY 11/28/22 10/24/23 28 mg iron-folic acid 800 mcg tablet (Classic ) ferrous sulfate 325 mg (65 mg 325 mg PO DAILY 10/24/23 10/24/23 iron) tablet (FeroSul) Allergies Allergy/AdvReac Type Severity Reaction Status Date / Time No Known Allergies Allergy Verified 10/24/23 09:54 [facility] Disclaimer: The information contained in this section may have been updated after the patient was seen, as this information can be updated by other users. Medical History Obstetric vaginal laceration 2nd degree perineal bilateral sulcus lacerations Recurrent loss Surgical History No history of previous surgery Family History Other Thyroid disorder Social History Smoking Status: Never smoker alcohol intake: never substance use type: denies use current occupational status: unemployed Travel in the last 8 weeks: None household members: spouse housing: house current occupational exposures/hazards: No caffeine: No Other Medical History Have you received the Flu Vaccine for this season: No Have you received the Pneumonia Vaccine: No ROS Obtained: Yes All systems reviewed & no additional complaints except as documented Physical Exam General General appearance: alert and obese Head Head exam: atraumatic and normocephalic Eye Eye exam: Present normal appearance, PERRL and EOMI Neck Neck exam: Present normal inspection, full ROM and trachea midline Respiratory Respiratory exam: Absent respiratory distress, wheezes, stridor, accessory muscle use or prolonged expiratory phase Cardiovascular Cardiovascular exam: Present regular rate, normal rhythm and other (Pulses equal symmetric in upper and lower extremities) Abdominal Exam Abdominal exam: Present soft; Absent distention, tenderness, guarding, rebound, rigidity, Dowell's sign, Rovsing's sign or pulsatile mass Extremities Exam Extremities exam: Absent edema Neurological Exam Neurological exam: Present alert, oriented X3 and CN II-XII intact; Absent motor sensory deficit Skin Skin exam: Present warm and dry; Absent diaphoresis or erythema Medical Decision Making Medical Records Medical records reviewed: Yes I reviewed the patient's medical records. Screening: Per USPSTF and CDC recommendations, given the prevalence of disease in our region, it is our hospital?s policy to screen for HIV and viral Hepatitis for all patients aged 18 and over and those with ongoing risk factors. Neeraj Inquiry Pt receiving controlled substance: No Neeraj was queried for this patient: No Vital Signs: 12/10/23 18:21 12/10/23 18:31 12/10/23 19:00 Temperature 98.1 F Temperature Source Oral Pulse Rate 81 65 Pulse Rate [Left Radial] 75 Respiratory Rate 13 18 Blood Pressure 114/93 H 106/73 L Blood Pressure [Right Arm] 123/72 Blood Pressure Mean 98 Blood Pressure Mean [Right Arm] 89 02 Sat by Pulse Oximetry 98 98 96 Oxygen Delivery Method Room Air 12/10/23 19:30 12/10/23 20:00 12/10/23 20:30 Temperature Temperature Source Pulse Rate 66 63 65 Pulse Rate [Left Radial] Respiratory Rate Blood Pressure 114/80 110/74 109/76 L Blood Pressure [Right Arm] Blood Pressure Mean Blood Pressure Mean [Right Arm] 02 Sat by Pulse Oximetry 97 98 97 Oxygen Delivery Method 12/10/23 21:00 12/10/23 21:30 Temperature Temperature Source Pulse Rate 64 61 Pulse Rate [Left Radial] Respiratory Rate Blood Pressure 107/86 L 110/73 Blood Pressure [Right Arm] Blood Pressure Mean Blood Pressure Mean [Right Arm] 02 Sat by Pulse Oximetry 98 97 Oxygen Delivery Method Lab Data Lab Results 12/10/23 18:14: Urine Color Yellow, Urine Appearance Clear, Urine pH 6.0, Ur Specific [place] >= 1.030, Urine Protein Trace, Urine Glucose (UA) Negative, Urine Ketones Negative, Urine Blood 3+ A, Urine Nitrate Negative, Urine Bilirubin Negative, Urine Urobilinogen 4.0, Ur Leukocyte Esterase Negative, Urine RBC 5-10, Urine WBC 20-50, Ur Squamous Epith Cells 20-50, Urine Bacteria 4+ 12/10/23 18:18: WBC 7.4, RBC 4.81, Hgb 13.8, Hct 40.3, MCV 83.8, MCH 28.8, MCHC 34.3, RDW 15.0, Plt Count 252, MPV 8.7, Neut % (Auto) 78.8, Lymph % (Auto) 15.0, [place] % (Auto) 4.9, Eos % (Auto) 0.8, Baso % (Auto) 0.5, Neut # (Auto) 5.8, Lymph # (Auto) 1.1, [place] # (Auto) 0.4, Eos # (Auto) 0.1, Baso # (Auto) 0.0, Sodium 137, Potassium 3.5, Chloride 105, Carbon Dioxide 26, Anion Gap 9.5, BUN 9, Creatinine 0.70, Estimated Creat Clear 147, Estimated GFR 98, Est GFR ( Amer) 119, Glucose 127 H, Calcium 9.1, Total Bilirubin 2.5 H, AST 537 H*, ALT 424 H*, Alkaline Phosphatase 193 H, Total Protein 7.5, Albumin 4.5, Globulin 3.0, Albumin/Globulin Ratio 1.5, Lipase 446 H, HCG, Quant < 2 12/10/23 18:18 12/10/23 18:18 Orders (Tests/Meds): ED MEDICATIONS Generic Name Dose Route Start Last Admin Trade Name Freq PRN Reason Stop Dose Admin Heparin Sodium (Porcine) 5,000 unit 12/10/23 21:00 Heparin Sodium 5,000 Unit/Ml Vial SQ 01/09/24 20:59 Q8H ELEANOR Sodium Chloride 1,000 mls @ 75 mls/hr 12/10/23 21:00 Sod Chlor 0.9% 1000ml Bag IV 01/09/24 20:59 .[id number] ELEANOR Piperacillin Sod/Tazobactam 50 mls @ 100 mls/hr 12/10/23 21:30 Sod 3.375 gm/ Sodium Chloride IV 12/20/23 21:29 Q6H ELEANOR Morphine Sulfate 2 mg 12/10/23 20:54 Morphine 2mg/Ml Syringe IV 01/09/24 20:53 Q2HP PRN Severe Pain (7-10) Sodium Chloride 10 ml 12/10/23 20:09 12/10/23 20:13 Sodium Chloride 0.9% 10ml Syr (Rad Only) IV 01/09/24 20:08 10 ml NEEDED PRN Administration Maintain IV Site Discontinued Medications Generic Name Dose Route Start Last Admin Trade Name Freq PRN Reason Stop Dose Admin Iopamidol 75 ml 12/10/23 20:09 12/10/23 20:13 Iopamidol-370 (76%);100ml Bottle IV 12/10/23 20:10 75 ml ONCE ONE Administration ORDERS Category Date Time Status CT abdomen pelvis w con Stat Cat Scan 12/10/23 19:34 Completed Gastroenterology Consult [Consult to Gastroenterology] Cons 12/10/23 20:18 Active [CONS] Routine General Surgery Consult [Consult to General Surgery] [ Cons 12/10/23 21:09 Ordered CONS] Routine POCUS Point of Care (ER Only) Stat Exams 12/10/23 18:31 Completed CBC w/Auto Diff [Complete Blood Count Auto Diff] Stat Lab 12/10/23 18:18 Completed CMP [Comprehensive Metabolic Panel] Stat Lab 12/10/23 18:18 Completed Complete Blood Count Auto Diff AMLAB Lab 12/11/23 06:00 Ordered Complete Blood Count Auto Diff AMLAB Lab 12/12/23 06:00 Ordered Complete Blood Count Auto Diff AMLAB Lab 12/13/23 06:00 Ordered Comprehensive Metabolic Panel AMLAB Lab 12/11/23 06:00 Ordered Comprehensive Metabolic Panel AMLAB Lab 12/12/23 06:00 Ordered Comprehensive Metabolic Panel AMLAB Lab 12/13/23 06:00 Ordered HCG,Quantitative Stat Lab 12/10/23 18:18 Completed HIV (1&2) Antibody Rapid Stat Lab 12/10/23 18:18 Received Hep C Ab with Reflex to RNA Stat Lab 12/10/23 18:18 Received Lipase Stat Lab 12/10/23 18:18 Completed UA [Urinalysis and Microscopic] Stat Lab 12/10/23 18:14 Completed Urine Culture Stat Micro 12/10/23 18:14 Received Medical Decision Narrative: 28-year-old female no relevant medical history presenting with abdominal pain. Patient states that she has had these intermittent abdominal pains over the past month. The last for couple hours, go away on their own. Nothing in particular brings them on, nothing in particular makes them better. Not exertional, not positional. Associated with diaphoresis, nausea and vomiting this nonbloody nonbilious and severe pain. She had one a few hours prior to this visit to the emergency department today which self abated. Came in for further evaluation. History was obtained via conversation with patient. On arrival, patient hemodynamically stable, alert, oriented x4, appropriate, GCS 15, moving all extremities spontaneously, pupils equal and reactive to light. Full physical exam performed and significant for very well-appearing patient who is in no acute distress. Not currently having pain. Abdomen is soft, nontender, nondistended. Negative Dowell sign, no flank tenderness. Differential includes PUD, gastritis, enteritis, gastroenteritis, pancreatitis, SBO, colitis, diverticulitis, nephrolithiasis, UTI, , cholecystitis, choledocholithiasis, appendicitis, hepatitis, torsion, aortic pathology, mesenteric ischemia among others. Patient placed on continuous cardiac monitoring and continuous pulse ox with initial blood pressure 123/72, heart rate 5, saturation 98% on room air. Workup independently interpreted and significant for nonactionable CBC. Chemistry with elevated LFTs AST greater than 500, ALT greater than 400, alkaline phosphatase nearly 200 and bilirubin 2.5. Lipase elevated nearly 450. hCG negative. Urinalysis with isolated blood. Bedside [id number] ultrasound with gallbladder wall thickening without significant pericholecystic fluid. Common bile duct 5 mm. Gastroenterology contacted and case was discussed at length, recommended admission for further evaluation tomorrow. Shortly thereafter, urinalysis resulted and patient has isolated blood and protein concerning for possible stone. I feel this is unlikely, but given the constellation of symptoms and findings, CT scan of the abdomen and pelvis with contrast was ordered. On independent interpretation of imaging, no acute renal stone. I feel the blood is likely due to her vaginal spotting contaminating the urinary sample. See radiology read for full review of final results. Hospitalist contacted and case was discussed at length, patient to be admitted for further gastroenterology evaluation, as well as surgical evaluation. Because patient high risk for clinical decompensation, deemed appropriate for inpatient admission. Results were relayed to patient who voiced understanding and patient was agreeable to inpatient admission and management. Patient was admitted to the hospital for further definitive management. 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 Electronic obstetrician and gynaecologist of the spoken language may permit errors. Although I have reviewed the note, some errors may still exist. Procedures Limited Ultrasound Indication:: Limited RUQ ultrasound Indication: Intermittent right upper quadrant abdominal pain and vomiting Identified structures: -Gallbladder -Gallbladder wall -Common bile duct -Liver Findings: Sonographic Dowell sign: Absent Gallstones: Absent Sludge: Absent Pericholecystic fluid: Absent Maximal GB wall thickness (mm) (normal is </= 3mm): Abnormal, thickened Common bile duct width (mm) (normal is </= 6mm): 6 mm Gallbladder width (cm) (normal is < 4cm): Abnormal, greater than 4 cm Gallbladder length (cm) (normal is < 10cm): Normal Impression: Thickened gallbladder wall without meaningful pericholecystic fluid. Difficult to visualize stones given decompressed gallbladder and thick wall. Normal common bile duct. Images were saved to permanent archive The study was technically adequate CPT 86713-54 This study was performed by me, and I personally interpreted all images/videos. Based on my clinical judgement, these images were adequate and did not necessitate further imaging. Critical Care Critical Care Time Critical Care Time: No
[2023-12-10 19:41] LABS: WBC,Urine 20-50 #/hpf (0-3)
[2023-12-10 19:42] LABS: Bacteria,Urine 4+ /lpf; Squamous Epithelial Cell,Urine 20-50 #/hpf (0-5)
[2023-12-10] MEDS: SODIUM CHLORIDE 0.9% 10ML SYR (RAD ONLY) 10 ML IV (20:13)
[2023-12-10] MEDS: IOPAMIDOL-370 (76%);100ML BOTTLE 75 ML IV (20:13)
--- NOTE | 2023-12-10 20:57 | P.HP_ITS ---
History of Present Illness *Admission Date: 12/10/23 *Reason for visit:: Abdominal pain *History of present illness: Patient is a 28-year-old female without significant past medical history who presents to the hospital due to intermittent abdominal pain in the right upper quadrant. Patient mentions she has associated nausea vomiting nonbloody, she rates her pain 9/10 intensity during the episode. Patient otherwise denied diarrhea constipation dysuria. Patient recently had vaginal delivery 3 months ago and she also complains of intermittent vaginal bleeding. Patient was noticed to have abnormal LFTs, elevated bilirubin and lipase level. Patient otherwise denied chest pain shortness of breath fevers chills. CT abdomen pelvis positive for cholelithiasis with diffuse gallbladder wall thickening concerning for cholecystitis. [facility] Disclaimer: The information contained in this section may have been updated after the patient was seen, as this information can be updated by other users. Medical History Obstetric vaginal laceration 2nd degree perineal bilateral sulcus lacerations Recurrent loss Surgical History No history of previous surgery Family History (Updated 12/10/23 @ 22:16 by Ai Savage RN) Mother Thyroid disorder Social History (Updated 12/10/23 @ 22:17 by Ai Savage RN) Smoking Status: Never smoker alcohol intake: never substance use type: denies use current occupational status: unemployed Travel in the last 8 weeks: None household members: spouse housing: house current occupational exposures/hazards: No caffeine: No Other Medical History Have you received the Flu Vaccine for this season: No Have you received the Pneumonia Vaccine: No Review of Systems Review of Systems Review of systems (narrative): documented as per HPI Meds Home Medications and Allergies Home Medications ?Medication ?Instructions ?Recorded ?Confirmed ?Type No Known Home Medications 12/10/23 12/10/23 History New Prescriptions to Start Prescriptions: Allergies Allergy/AdvReac Type Severity Reaction Status Date / Time No Known Allergies Allergy Verified 12/10/23 22:50 Exam Data for Last 24 hours Vital signs and Labs for Last 24 Hours: Temp Pulse Resp BP Pulse Ox O2 Del Method 98.1 F 65 18 109/76 L 97 Room Air 12/10/23 18:21 12/10/23 20:30 12/10/23 18:31 12/10/23 20:30 12/10/23 20:30 12/10/23 18:21 Laboratory Results - last 24 hr 12/10/23 18:14: Urine Color Yellow, Urine Appearance Clear, Urine pH 6.0, Ur Specific [place] >= 1.030, Urine Protein Trace, Urine Glucose (UA) Negative, Urine Ketones Negative, Urine Blood 3+ A, Urine Nitrate Negative, Urine Bilirubin Negative, Urine Urobilinogen 4.0, Ur Leukocyte Esterase Negative, Urine RBC 5-10, Urine WBC 20-50, Ur Squamous Epith Cells 20-50, Urine Bacteria 4+ 12/10/23 18:18: WBC 7.4, RBC 4.81, Hgb 13.8, Hct 40.3, MCV 83.8, MCH 28.8, MCHC 34.3, RDW 15.0, Plt Count 252, MPV 8.7, Neut % (Auto) 78.8, Lymph % (Auto) 15.0, [place] % (Auto) 4.9, Eos % (Auto) 0.8, Baso % (Auto) 0.5, Neut # (Auto) 5.8, Lymph # (Auto) 1.1, [place] # (Auto) 0.4, Eos # (Auto) 0.1, Baso # (Auto) 0.0, Sodium 137, Potassium 3.5, Chloride 105, Carbon Dioxide 26, Anion Gap 9.5, BUN 9, Creatinine 0.70, Estimated Creat Clear 147, Estimated GFR 98, Est GFR ( Amer) 119, Glucose 127 H, Calcium 9.1, Total Bilirubin 2.5 H, AST 537 H*, ALT 424 H*, Alkaline Phosphatase 193 H, Total Protein 7.5, Albumin 4.5, Globulin 3.0, Albumin/Globulin Ratio 1.5, Lipase 446 H, HCG, Quant < 2 I & O for Last 24 hours: Intake & Output 12/07/23 12/08/23 12/09/23 12/10/23 23:59 23:59 23:59 23:59 Weight 79.379 kg Constitutional Constitutional: no acute distress *Routine HEENT Exam Head: Present normocephalic Eye: Present EOMI and PERRL ENT: Present mucous membranes moist *Routine Neck Exam Neck: Present supple; Absent lymphadenopathy *Routine Respiratory Exam Respiratory: Present CTA bilaterally *Routine Cardiovascular Exam Cardiovascular: Present RRR *Routine Abdominal Exam Abdominal: Present soft, normoactive bowel sounds and tenderness Comments: tender in upper abdomen *Routine Rectal Exam Rectal:: deferred *Routine Genitalia Exam Genitalia:: deferred *Routine Extremities Exam Extremities: Absent cyanosis, clubbing or edema *Routine Skin Exam Skin: Present warm; Absent rash *Routine Neurological Exam Neurological: Present alert and oriented X3 Assessment and Plan *Assessment and plan (1) Choledocholithiasis with acute cholecystitis: Status: Acute Category: Medical Code(s): K80.42 - Calculus of bile duct with acute cholecystitis without obstruction (2) Vaginal bleeding: Status: Acute Category: Medical Code(s): N93.9 - Abnormal uterine and vaginal bleeding, unspecified Plan Patient is a 28-year-old female without significant past medical history who presents to the hospital due to intermittent abdominal pain in the right upper quadrant. Patient mentions she has associated nausea vomiting nonbloody, she rates her pain 9/10 intensity during the episode. Patient otherwise denied diarrhea constipation dysuria. Patient recently had vaginal delivery 3 months ago and she also complains of intermittent vaginal bleeding. Patient was noticed to have abnormal LFTs, elevated bilirubin and lipase level. Patient otherwise denied chest pain shortness of breath fevers chills. CT abdomen pelvis positive for cholelithiasis with diffuse gallbladder wall thickening concerning for cholecystitis. Assessment and plan Right upper quadrant abdominal pain likely secondary to cholecystitis Transaminitis Elevated lipase level CT abdomen pelvis positive for cholelithiasis with diffuse gallbladder wall thickening concerning for cholecystitis Consult general surgery for possible cholecystectomy Consult GI for possible ERCP Start IV Zosyn IV fluids Monitor LFTs Pain control N.p.o. after midnight Vaginal bleeding Consult TRANSMISSION REPAIRER Monitor CBC DVT prophylaxis-heparin
[2023-12-10 21:47] LABS: HIV (1&2) Antibody Rapid NONREACTIVE (NONREACTIVE)
--- NOTE | 2023-12-10 21:49 | PC.NURSE ---
Patient arrived to floor via wheelchair from ED at 21:48.
[2023-12-10] MEDS: PIPERACILLIN/TAZO 3.375 GM in 0.9 % SODIUM CHLORIDE 50 ML IV (22:36)
[2023-12-10] MEDS: 0.9 % SODIUM CHLORIDE 1000ML 1,000 ML 75 ML IV (22:36)
[2023-12-11] VITALS (21 sets, daily range): BP systolic 94–140; BP diastolic 50–78; PULSE 41–92; RESP 14–20; TEMP 36.3–37; O2SAT 97–100; BMI 27.6
[2023-12-11] MEDS: PIPERACILLIN/TAZO 3.375 GM in 0.9 % SODIUM CHLORIDE 50 ML IV ×4 (03:12→20:43)
--- NOTE | 2023-12-11 05:03 | PC.NURSE ---
Notified by tech of low blood pressure of 94/50 at approximately 0455. Documenting RN rechecked patients blood pressure and it was 103/66.
--- NOTE | 2023-12-11 05:04 | PC.NURSE ---
Patient has remained alert and oriented x4 this shift. Tolerating room air with o2 >90%. Abdomen soft, active bowel sounds, non-tender. Patient states her last bowel movement was 12/10/23. NS currently infusing at 75mls/hr. IV antibiotics administered per MAY. Patient refuses Heparin and has been ambulating to/from restroom independently. No complaints of pain, nausea or vomiting this shift. Call light within reach.
[2023-12-11 07:11] LABS: Chloride 106 mmol/L (98-107); Potassium 3.3 mmoL/L (3.5-5.1); Sodium 140 mmol/L (136-145)
[2023-12-11 07:13] LABS: Blood Urea Nitrogen 9 mg/dl (7-17); Creatinine Clearance Estimated 130 mL/min (50-200); Estimated Glomerular Filt Rate 84 ml/min (>60); GFR (African American) 102 ML/MIN (>60)
[2023-12-11 07:14] LABS: Alanine Aminotransferase 384 U/L (12-78); Albumin/Globulin Ratio 1.5 (1.1-1.8); Alkaline Phosphatase 174 U/L (38-126); Anion Gap 11.3 mEq/L (5-15); Aspartate Amino Transferase 263 U/L (14-36); Calcium 8.6 mg/dl (8.4-10.2); Carbon Dioxide 26 mmol/L (22.0-30.0); Globulin 2.6 g/dL (1.3-3.2); Glucose 90 mg/dl (74-100); Total Protein,Serum 6.6 g/dl (6.3-8.2)
[2023-12-11 07:31] LABS: Basophils # 0.1 K/mm3 (0-0.2); Eosinophils # 0.2 K/mm3 (0.0-0.4); Eosinophils % 3.6 % (0.1-12.0); Hematocrit 37.3 % (37.0-47.0); Lymphocytes # 1.4 K/mm3 (0.7-4.5); Lymphocytes % 26.3 % (10-50); Mean Corpuscular HGB Conc 33.2 g/dL (31.8-35.4); Mean Corpuscular Hemoglobin 29.9 pg (27.0-31.2); Mean Corpuscular Volume 90.1 fl (81-99); Monocytes # 0.3 K/mm3 (0.1-1.0); Monocytes % 5.3 % (1.7-9.3); Neutrophils # 3.4 K/mm3 (1.8-7.8); Neutrophils % 63.8 % (37.0-80.0); Platelet Count 229 K/mm3 (142-424); Red Blood Count 4.14 M/mm3 (4.20-5.40); Red Cell Distribution Width 14.8 % (11.5-17.5); White Blood Count 5.3 K/mm3 (4.8-10.8)
[2023-12-11 07:47] LABS: Hemoglobin 12.7 g/dL (12.2-16.2)
--- NOTE | 2023-12-11 08:16 | P.CONS_ITS ---
History of Present Illness *Admission Date: 12/10/23 *Reason for visit:: Evaluate for cholecystectomy *History of present illness: Patient is a 28-year-old female who is 3 months status post normal vaginal delivery. Incidentally, she has had intermittent vaginal bleeding. She has had intermittent abdominal pain in the right upper quadrant with associated nausea and vomiting over the past month that have usually been self-limited. She had a significant episode overnight and presented to the emergency department. She was found to have elevated lipase of 450. She did have elevated bilirubin of 2.5 with some elevation of transaminases and alkaline phosphatase. She underwent CT scan of the abdomen and pelvis which revealed cholelithiasis with diffuse gallbladder wall thickening. Findings could be due to cholecystitis. It is somewhat atypical for acute cholecystitis to present without gallbladder distention and therefore this could be chronic cholecystitis or potentially secondary to other pathologies including diffuse adenomyomatosis. No biliary ductal dilatation. Gastroenterology was contacted. Plan was for admission for inpatient management and consultations. Consultations were placed with gastroenterology (for choledocholithiasis), gynecology (for vaginal bleeding), general surgery (to evaluate for cholecystectomy). This morning her symptoms have resolved and she feels well. Her bilirubin has normalized to 1.0. AST improved to 263 and ALT slightly improved to 384. Alkaline phosphatase 174. [facility] Disclaimer: The information contained in this section may have been updated after the patient was seen, as this information can be updated by other users. Medical History Obstetric vaginal laceration 2nd degree perineal bilateral sulcus lacerations Recurrent loss Surgical History No history of previous surgery Family History (Updated 12/10/23 @ 22:16 by Ai Savage RN) Thyroid disorder Mother Social History (Updated 12/10/23 @ 22:17 by Ai Savage RN) Smoking Status: Never smoker alcohol intake: never substance use type: denies use current occupational status: unemployed Travel in the last 8 weeks: None household members: spouse housing: house current occupational exposures/hazards: No caffeine: No Meds Home Medications and Allergies Home Medications ?Medication ?Instructions ?Recorded ?Confirmed ?Type No Known Home Medications 12/10/23 12/10/23 History New Prescriptions to Start Prescriptions: Allergies Allergy/AdvReac Type Severity Reaction Status Date / Time No Known Allergies Allergy Verified 12/10/23 22:50 Exam (Inpt) Vital signs and Labs for Last 24 Hours: Temp Pulse Resp BP Pulse Ox O2 Del Method 98.6 F 74 16 103/66 L 98 Room Air 12/11/23 04:00 12/11/23 05:03 12/11/23 05:03 12/11/23 05:03 12/11/23 05:03 12/11/23 06:42 Laboratory Results - last 24 hr 12/10/23 18:14: Urine Color Yellow, Urine Appearance Clear, Urine pH 6.0, Ur Specific [place] >= 1.030, Urine Protein Trace, Urine Glucose (UA) Negative, Urine Ketones Negative, Urine Blood 3+ A, Urine Nitrate Negative, Urine Bilirubin Negative, Urine Urobilinogen 4.0, Ur Leukocyte Esterase Negative, Urine RBC 5-10, Urine WBC 20-50, Ur Squamous Epith Cells 20-50, Urine Bacteria 4+ 12/10/23 18:18: WBC 7.4, RBC 4.81, Hgb 13.8, Hct 40.3, MCV 83.8, MCH 28.8, MCHC 34.3, RDW 15.0, Plt Count 252, MPV 8.7, Neut % (Auto) 78.8, Lymph % (Auto) 15.0, [place] % (Auto) 4.9, Eos % (Auto) 0.8, Baso % (Auto) 0.5, Neut # (Auto) 5.8, Lymph # (Auto) 1.1, [place] # (Auto) 0.4, Eos # (Auto) 0.1, Baso # (Auto) 0.0, Sodium 137, Potassium 3.5, Chloride 105, Carbon Dioxide 26, Anion Gap 9.5, BUN 9, Creatinine 0.70, Estimated Creat Clear 147, Estimated GFR 98, Est GFR ( Amer) 119, Glucose 127 H, Calcium 9.1, Total Bilirubin 2.5 H, AST 537 H*, ALT 424 H*, Alkaline Phosphatase 193 H, Total Protein 7.5, Albumin 4.5, Globulin 3.0, Albumin/Globulin Ratio 1.5, Lipase 446 H, HCG, Quant < 2, HIV 1&2 Antibody Rapid Nonreactive 12/11/23 06:05: WBC 5.3 D, RBC 4.14 L, Hgb 12.7, Hct 37.3, MCV 90.1, MCH 29.9, MCHC 33.2, RDW 14.8, Plt Count 229, MPV 8.0, Neut % (Auto) 63.8, Lymph % (Auto) 26.3, [place] % (Auto) 5.3, Eos % (Auto) 3.6, Baso % (Auto) 1.0, Neut # (Auto) 3.4, Lymph # (Auto) 1.4, [place] # (Auto) 0.3, Eos # (Auto) 0.2, Baso # (Auto) 0.1, Sodium 140, Potassium 3.3 L, Chloride 106, Carbon Dioxide 26, Anion Gap 11.3, BUN 9, Creatinine 0.80, Estimated Creat Clear 130, Estimated GFR 84, Est GFR ( Amer) 102, Glucose 90 D, Calcium 8.6, Total Bilirubin 1.0, AST 263 H D , ALT 384 H*, Alkaline Phosphatase 174 H, Total Protein 6.6, Albumin 4.0 D, Globulin 2.6, Albumin/Globulin Ratio 1.5 I & O for Labs for Last 24 Hours: Intake & Output 12/08/23 12/09/23 12/10/23 12/11/23 11:59 11:59 11:59 11:59 Intake Total 632 / 632 Output Total 0 / 0 Balance 632 / 632 Weight 176 lb 4.8 oz GI: Present soft; Absent tenderness Results Labs 12/11/23 06:05 12/11/23 06:05 Labs: Laboratory Results - last 24 hr 12/10/23 18:14: Urine Color Yellow, Urine Appearance Clear, Urine pH 6.0, Ur Specific [place] >= 1.030, Urine Protein Trace, Urine Glucose (UA) Negative, Urine Ketones Negative, Urine Blood 3+ A, Urine Nitrate Negative, Urine Bilirubin Negative, Urine Urobilinogen 4.0, Ur Leukocyte Esterase Negative, Urine RBC 5-10, Urine WBC 20-50, Ur Squamous Epith Cells 20-50, Urine Bacteria 4+ 12/10/23 18:18: WBC 7.4, RBC 4.81, Hgb 13.8, Hct 40.3, MCV 83.8, MCH 28.8, MCHC 34.3, RDW 15.0, Plt Count 252, MPV 8.7, Neut % (Auto) 78.8, Lymph % (Auto) 15.0, [place] % (Auto) 4.9, Eos % (Auto) 0.8, Baso % (Auto) 0.5, Neut # (Auto) 5.8, Lymph # (Auto) 1.1, [place] # (Auto) 0.4, Eos # (Auto) 0.1, Baso # (Auto) 0.0, Sodium 137, Potassium 3.5, Chloride 105, Carbon Dioxide 26, Anion Gap 9.5, BUN 9, Creatinine 0.70, Estimated Creat Clear 147, Estimated GFR 98, Est GFR ( Amer) 119, Glucose 127 H, Calcium 9.1, Total Bilirubin 2.5 H, AST 537 H*, ALT 424 H*, Alkaline Phosphatase 193 H, Total Protein 7.5, Albumin 4.5, Globulin 3.0, Albumin/Globulin Ratio 1.5, Lipase 446 H, HCG, Quant < 2, HIV 1&2 Antibody Rapid Nonreactive 12/11/23 06:05: WBC 5.3 D, RBC 4.14 L, Hgb 12.7, Hct 37.3, MCV 90.1, MCH 29.9, MCHC 33.2, RDW 14.8, Plt Count 229, MPV 8.0, Neut % (Auto) 63.8, Lymph % (Auto) 26.3, [place] % (Auto) 5.3, Eos % (Auto) 3.6, Baso % (Auto) 1.0, Neut # (Auto) 3.4, Lymph # (Auto) 1.4, [place] # (Auto) 0.3, Eos # (Auto) 0.2, Baso # (Auto) 0.1, Sodium 140, Potassium 3.3 L, Chloride 106, Carbon Dioxide 26, Anion Gap 11.3, BUN 9, Creatinine 0.80, Estimated Creat Clear 130, Estimated GFR 84, Est GFR ( Amer) 102, Glucose 90 D, Calcium 8.6, Total Bilirubin 1.0, AST 263 H D , ALT 384 H*, Alkaline Phosphatase 174 H, Total Protein 6.6, Albumin 4.0 D, Globulin 2.6, Albumin/Globulin Ratio 1.5 Assessment and Plan *Assessment and plan (1) Cholecystitis with cholelithiasis: Status: Acute Category: Medical Code(s): K80.10 - Calculus of gallbladder with chronic cholecystitis without obstruction Plan Patient does not have any evidence of acute cholecystitis. Likely chronic cholecystitis with cholelithiasis. She has shown some improvement in her liver function test. Possible transient choledocholithiasis with intermittent passage of gallstones versus transient choledocholithiasis with occasional biliary obstruction. I discussed case with gastroenterology. Plan is made for ERCP this afternoon with clearance of the bile duct. Pending findings of ERCP and patient's clinical state likely would be able to follow-up as an outpatient for cholecystectomy as clinically and radiographically no evidence of acute cholecystitis warranting urgent inpatient cholecystectomy at this time. I have ordered official gallbladder ultrasound.
--- NOTE | 2023-12-11 08:25 | US_ITS ---
FINAL REPORT CLINICAL HISTORY: ABDOMINAL PAIN FINDINGS: RIGHT UPPER QUADRANT ULTRASOUND Sonographic images of the right upper quadrant were obtained. The pancreas is partially obscured.The liver has an unremarkable appearance. There is gallbladder wall thickening measuring 6 mm. Multiple gallstones are identified. There is a small amount of sludge and pericholecystic fluid. The common duct measures 3 mm. Limited images of the right kidney are normal. IMPRESSION: Gallbladder wall thickening with stones and sludge with a small amount of pericholecystic fluid concerning for acute cholecystitis in the appropriate clinical setting. Reviewed, Interpreted and Dictated by Gordy Spann MD Transcribed by Nicole Redmond Authenticated and [facility]
--- NOTE | 2023-12-11 10:46 | EXP.GYNCONS ---
History of Present Illness *Admission Date: 12/10/23 *Reason for visit:: Irregular uterine bleeding with Nexplanon in place *History of present illness: Mrs Blanche Higgins is a very pleasant 28 yo P2022 admitted to [facility] for intermittent abdominal pain with nausea and vomiting over the past month. She was found to have cholecystitis with cholelithiasis. On admission she admitted to intermittent vaginal bleeding. She had Nexplanon inserted 10/24/23 for contraception. She admits bleeding is light but irregular. She states this is not concerning to her. She had irregular bleeding with Nexplanon contraception prior to last vaginal delivery as well. She denies pelvic pain. No vaginal discharge, itching or burning. History of x 2. Last delivery was 09/13/23. She denies RUQ abdominal pain this morning. Feeling well this morning. [facility] Disclaimer: The information contained in this section may have been updated after the patient was seen, as this information can be updated by other users. Medical History (Updated 12/11/23 @ 10:55 by Melody Patel DO) Breakthrough bleeding on Nexplanon Nexplanon in place Obstetric vaginal laceration Recurrent loss Surgical History No history of previous surgery Family History (Updated 12/10/23 @ 22:16 by Ai Savage RN) Mother Thyroid disorder Social History (Updated 12/10/23 @ 22:17 by Ai Savage RN) Smoking Status: Never smoker alcohol intake: never substance use type: denies use current occupational status: unemployed Travel in the last 8 weeks: None household members: spouse housing: house current occupational exposures/hazards: No caffeine: No Review of Systems Review of Systems Review of systems:: pertinent systems reviewed and negative unless documented below *Genitourinary Comments: + irregular vaginal bleeding with Nexplanon in place Meds Home Medications and Allergies Home Medications ?Medication ?Instructions ?Recorded ?Confirmed ?Type No Known Home Medications 12/10/23 12/10/23 History New Prescriptions to Start Prescriptions: Allergies Allergy/AdvReac Type Severity Reaction Status Date / Time No Known Allergies Allergy Verified 12/10/23 22:50 Exam (Inpt) Vital signs and Labs for Last 24 Hours: Temp Pulse Resp BP Pulse Ox O2 Del Method 98.6 F 82 16 100/68 L 97 Room Air 12/11/23 08:00 12/11/23 08:00 12/11/23 08:00 12/11/23 08:00 12/11/23 08:00 12/11/23 09:00 Laboratory Results - last 24 hr 12/10/23 18:14: Urine Color Yellow, Urine Appearance Clear, Urine pH 6.0, Ur Specific [place] >= 1.030, Urine Protein Trace, Urine Glucose (UA) Negative, Urine Ketones Negative, Urine Blood 3+ A, Urine Nitrate Negative, Urine Bilirubin Negative, Urine Urobilinogen 4.0, Ur Leukocyte Esterase Negative, Urine RBC 5-10, Urine WBC 20-50, Ur Squamous Epith Cells 20-50, Urine Bacteria 4+ 12/10/23 18:18: WBC 7.4, RBC 4.81, Hgb 13.8, Hct 40.3, MCV 83.8, MCH 28.8, MCHC 34.3, RDW 15.0, Plt Count 252, MPV 8.7, Neut % (Auto) 78.8, Lymph % (Auto) 15.0, [place] % (Auto) 4.9, Eos % (Auto) 0.8, Baso % (Auto) 0.5, Neut # (Auto) 5.8, Lymph # (Auto) 1.1, [place] # (Auto) 0.4, Eos # (Auto) 0.1, Baso # (Auto) 0.0, Sodium 137, Potassium 3.5, Chloride 105, Carbon Dioxide 26, Anion Gap 9.5, BUN 9, Creatinine 0.70, Estimated Creat Clear 147, Estimated GFR 98, Est GFR ( Amer) 119, Glucose 127 H, Calcium 9.1, Total Bilirubin 2.5 H, AST 537 H*, ALT 424 H*, Alkaline Phosphatase 193 H, Total Protein 7.5, Albumin 4.5, Globulin 3.0, Albumin/Globulin Ratio 1.5, Lipase 446 H, HCG, Quant < 2, HIV 1&2 Antibody Rapid Nonreactive 12/11/23 06:05: WBC 5.3 D, RBC 4.14 L, Hgb 12.7, Hct 37.3, MCV 90.1, MCH 29.9, MCHC 33.2, RDW 14.8, Plt Count 229, MPV 8.0, Neut % (Auto) 63.8, Lymph % (Auto) 26.3, [place] % (Auto) 5.3, Eos % (Auto) 3.6, Baso % (Auto) 1.0, Neut # (Auto) 3.4, Lymph # (Auto) 1.4, [place] # (Auto) 0.3, Eos # (Auto) 0.2, Baso # (Auto) 0.1, Sodium 140, Potassium 3.3 L, Chloride 106, Carbon Dioxide 26, Anion Gap 11.3, BUN 9, Creatinine 0.80, Estimated Creat Clear 130, Estimated GFR 84, Est GFR ( Amer) 102, Glucose 90 D, Calcium 8.6, Total Bilirubin 1.0, AST 263 H D, ALT 384 H*, Alkaline Phosphatase 174 H, Total Protein 6.6, Albumin 4.0 D, Globulin 2.6, Albumin/Globulin Ratio 1.5 I & O for Labs for Last 24 Hours: Intake & Output 12/08/23 12/09/23 12/10/23 12/11/23 23:59 23:59 23:59 23:59 Intake Total 632 / 632 Output Total 0 / 0 Balance 632 / 632 Weight 174 lb 1.6 oz 176 lb 4.8 oz Constitutional: no acute distress and cooperative HEENT Head: Present normocephalic and atraumatic ENT: Present normal exam Neck: Present normal inspection and full ROM Respiratory: Present CTA bilaterally and normal respiratory effort Cardiac: Present Reg Rate and Rhythm GI: Present soft; Absent distention or tenderness Rectal (female): Present deferred Extremities: Present normal inspection and full ROM Neuro: Present alert, awake and moves all extremities Assessment and Plan *Assessment and plan (1) Nexplanon in place: Status: Acute Category: Social Hx Code(s): Z97.5 - Presence of (intrauterine) contraceptive device (2) Breakthrough bleeding on Nexplanon: Status: Acute Category: Medical Code(s): N92.1 - Excessive and frequent menstruation with irregular cycle; Z97.5 - Presence of (intrauterine) contraceptive device Plan Discussed common side effect of Nexplanon is irregular bleeding. She voiced agreement and understanding. Bleeding is light. She has no complaints or concerns. Discussed if transaminitis resolves we could try a small course (2-3 months) of combined OCPs to help regulate the bleeding. She states the irregular bleeding is not too bothersome to her. Continue with expectant management for irregular bleeding with Nexplanon. Thank you for this consult
--- NOTE | 2023-12-11 13:32 | FL_ITS ---
FINAL REPORT CLINICAL HISTORY: ERCP 1 min 11 secs fluoro 28.82 mGy FINDINGS: FLUOROSCOPY LESS THAN 1 HOUR HISTORY: Fluoroscopy guidance. FINDINGS: Fluoroscopic guidance was provided for ERCP. A single spot film was obtained. A total of 1 minute and 11 seconds of fluoroscopy time were used. DAP: 28.82 mGy IMPRESSION: As above. Reviewed, Interpreted and Dictated by Gordy Spann MD Transcribed by Tammy Anderson Authenticated and [facility]
--- NOTE | 2023-12-11 13:47 | EXP.ANES.CKL ---
[facility] Disclaimer: The information contained in this section may have been updated after the patient was seen, as this information can be updated by other users. Medical History (Updated 12/11/23 @ 10:55 by Melody Patel DO) Breakthrough bleeding on Nexplanon Nexplanon in place Obstetric vaginal laceration Recurrent loss Surgical History No history of previous surgery Family History (Updated 12/10/23 @ 22:16 by Ai Savage RN) Mother Thyroid disorder Social History (Updated 12/10/23 @ 22:17 by Ai Savage RN) Smoking Status: Never smoker alcohol intake: never substance use type: denies use current occupational status: unemployed Travel in the last 8 weeks: None household members: spouse housing: house current occupational exposures/hazards: No caffeine: No [facility] Anesthesia Checklist Patient Identification Patient Identification: Verbal (Name & ) Structural Data Admitted From: Home Planned Operative Procedure/s: ercp Consent for Planned Operative Procedure(s) Verified: Yes Additional verifications Anesthesia Reactions: No Hx Blood Transfusions: No Blood Transfusion Reaction: No Airway Assessment Mallampati Score:: Class II C-Spine Mobility Assessed: Yes TMJ Mobility Assessed: Yes Dentition: Good Dentition Neurological Assessment Level of Consciousness: Awake, Alert and Appropriate Anesthesia Plan Anesthesia Risk discussed: Yes Anesthesia Plan: Verified ASA Class: I Anesthesia Type: General
--- NOTE | 2023-12-11 14:36 | EXP.HP ---
History of Present Illness *Admission Date: 12/10/23 *Reason for visit:: Biliary colic *History of present illness: Mrs Blanche Higgins is a very pleasant 28 yo P2022 admitted to [facility] for intermittent abdominal pain with nausea and vomiting over the past month. She was found to have cholecystitis with cholelithiasis. On admission she admitted to intermittent vaginal bleeding. She had Nexplanon inserted 10/24/23 for contraception. She admits bleeding is light but irregular. She states this is not concerning to her. She had irregular bleeding with Nexplanon contraception prior to last vaginal delivery as well. She denies pelvic pain. No vaginal discharge, itching or burning. History of x 2. Last delivery was 09/13/23. She denies RUQ abdominal pain this morning. Feeling well this morning. [facility] Disclaimer: The information contained in this section may have been updated after the patient was seen, as this information can be updated by other users. Medical History (Updated 12/11/23 @ 14:37 by Destin Guerrier II, MD) Breakthrough bleeding on Nexplanon Nexplanon in place Obstetric vaginal laceration Recurrent loss Surgical History No history of previous surgery Family History (Updated 12/10/23 @ 22:16 by Ai Savage RN) Mother Thyroid disorder Social History (Updated 12/10/23 @ 22:17 by Ai Savage RN) Smoking Status: Never smoker alcohol intake: never substance use type: denies use current occupational status: unemployed Travel in the last 8 weeks: None household members: spouse housing: house current occupational exposures/hazards: No caffeine: No Other Medical History Have you received the Flu Vaccine for this season: No Have you received the Pneumonia Vaccine: No Review of Systems Review of Systems Review of systems (narrative): Negative *Cardiovascular Comments: Negative *Gastrointestinal Comments: Negative *Genitourinary Comments: Negative *Musculoskeletal Comments: Negative *Neurologic Comments: Negative Meds Home Medications and Allergies Home Medications ?Medication ?Instructions ?Recorded ?Confirmed ?Type No Known Home Medications 12/10/23 12/10/23 History New Prescriptions to Start Prescriptions: Allergies Allergy/AdvReac Type Severity Reaction Status Date / Time No Known Allergies Allergy Verified 12/10/23 22:50 Exam Data for Last 24 hours Vital signs and Labs for Last 24 Hours: Temp Pulse Resp BP Pulse Ox O2 Del Method 98.6 F 82 16 100/68 L 97 Room Air 12/11/23 08:00 12/11/23 08:00 12/11/23 08:00 12/11/23 08:00 12/11/23 08:00 12/11/23 13:00 Laboratory Results - last 24 hr 12/10/23 18:14: Urine Color Yellow, Urine Appearance Clear, Urine pH 6.0, Ur Specific [place] >= 1.030, Urine Protein Trace, Urine Glucose (UA) Negative, Urine Ketones Negative, Urine Blood 3+ A, Urine Nitrate Negative, Urine Bilirubin Negative, Urine Urobilinogen 4.0, Ur Leukocyte Esterase Negative, Urine RBC 5-10, Urine WBC 20-50, Ur Squamous Epith Cells 20-50, Urine Bacteria 4+ 12/10/23 18:18: WBC 7.4, RBC 4.81, Hgb 13.8, Hct 40.3, MCV 83.8, MCH 28.8, MCHC 34.3, RDW 15.0, Plt Count 252, MPV 8.7, Neut % (Auto) 78.8, Lymph % (Auto) 15.0, [place] % (Auto) 4.9, Eos % (Auto) 0.8, Baso % (Auto) 0.5, Neut # (Auto) 5.8, Lymph # (Auto) 1.1, [place] # (Auto) 0.4, Eos # (Auto) 0.1, Baso # (Auto) 0.0, Sodium 137, Potassium 3.5, Chloride 105, Carbon Dioxide 26, Anion Gap 9.5, BUN 9, Creatinine 0.70, Estimated Creat Clear 147, Estimated GFR 98, Est GFR ( Amer) 119, Glucose 127 H, Calcium 9.1, Total Bilirubin 2.5 H, AST 537 H*, ALT 424 H*, Alkaline Phosphatase 193 H, Total Protein 7.5, Albumin 4.5, Globulin 3.0, Albumin/Globulin Ratio 1.5, Lipase 446 H, HCG, Quant < 2, HIV 1&2 Antibody Rapid Nonreactive 12/11/23 06:05: WBC 5.3 D, RBC 4.14 L, Hgb 12.7, Hct 37.3, MCV 90.1, MCH 29.9, MCHC 33.2, RDW 14.8, Plt Count 229, MPV 8.0, Neut % (Auto) 63.8, Lymph % (Auto) 26.3, [place] % (Auto) 5.3, Eos % (Auto) 3.6, Baso % (Auto) 1.0, Neut # (Auto) 3.4, Lymph # (Auto) 1.4, [place] # (Auto) 0.3, Eos # (Auto) 0.2, Baso # (Auto) 0.1, Sodium 140, Potassium 3.3 L, Chloride 106, Carbon Dioxide 26, Anion Gap 11.3, BUN 9, Creatinine 0.80, Estimated Creat Clear 130, Estimated GFR 84, Est GFR ( Amer) 102, Glucose 90 D, Calcium 8.6, Total Bilirubin 1.0, AST 263 H D, ALT 384 H*, Alkaline Phosphatase 174 H, Total Protein 6.6, Albumin 4.0 D, Globulin 2.6, Albumin/Globulin Ratio 1.5 I & O for Last 24 hours: Intake & Output 12/08/23 12/09/23 12/10/23 12/11/23 23:59 23:59 23:59 23:59 Intake Total 632 / 632 Output Total 0 / 0 Balance 632 / 632 Weight 174 lb 1.6 oz 176 lb 4.8 oz *Routine HEENT Exam Head: Present normocephalic Eye: Present EOMI and PERRL ENT: Present mucous membranes moist *Routine Neck Exam Neck: Present supple *Routine Respiratory Exam Respiratory: Present CTA bilaterally *Routine Cardiovascular Exam Cardiovascular: Present RRR *Routine Abdominal Exam Abdominal: Present soft and normoactive bowel sounds; Absent tenderness *Routine Rectal Exam Rectal:: deferred *Routine Genitalia Exam Genitalia:: deferred *Routine Extremities Exam Extremities: Absent cyanosis, clubbing or edema *Routine Skin Exam Skin: Present warm; Absent rash *Routine Neurological Exam Neurological: Present alert and oriented X3 Assessment and Plan *Assessment and plan (1) Choledocholithiasis with acute cholecystitis: Status: Acute Category: Medical Code(s): K80.42 - Calculus of bile duct with acute cholecystitis without obstruction (2) Right upper quadrant abdominal pain: Status: Acute Category: Medical Code(s): R10.11 - Right upper quadrant pain Plan A/P: 1. Right upper quadrant abdominal pain with elevated bilirubin and biliary colic?suspect choledocholithiasis without cholangitis is the preprocedural diagnosis. The patient will be anesthetized/sedated using MAC sedation. The patient has been seen and examined. Cardiac and lung assessment prior to the examination is stable. Proceed with planned ERCP
--- NOTE | 2023-12-11 14:37 | HMH.PROCNOTE ---
[facility] Procedure Note Date: 12/11/23 Procedure Note:: ERCP procedure Report: Endoscopic retrograde cholangiopancreatography with biliary sphincterotomy, balloon extraction and cold biopsy Endoscopist: Destin Guerrier II, MD Referring Physician: Hernandez Bermeo DO Date of Procedure: December 11, 2023 Equipment: Olympus 180 side viewing endoscope duodenoscope Sedation: MAC sedation Indication: Mrs. Higgins is a 28-year-old female who presented with symptomatic right upper quadrant abdominal pain. This was colicky pain and she presented to the emergency department. She has had this intermittently for the last 3 weeks. She did have an uncomplicated with vaginal delivery 3 months ago. At the emergency department, she did have routine labs and her total bilirubin was 2.5, AST 537, ALT 424, alkaline phosphatase 193 and lipase 446. Her white blood cell count was 7.4 and she was afebrile. A bedside ultrasound was done in the emergency department and the common bile duct was at 5 mm. There was gallbladder wall thickening. Today, her liver chemistries were assessed and her total bilirubin was 1.0 with AST 263 and ALT 384. Her alkaline phosphatase declined to 174. Her gallbladder ultrasound today showed wall thickening with stones and sludge with a small amount of pericholecystic fluid. Her CAT scan also showed cholelithiasis with diffuse gallbladder wall thickening consistent with cholecystitis. There was no biliary ductal dilation. Procedure: Prior to the procedure, a history and physical exam was performed, and patient's medications and allergies were reviewed. The risks, benefits and alternatives of the sedation and procedure were discussed with the patient. All questions were answered and informed consent was obtained. The patient was brought to the fluoroscopic radiology room. Patient identification and proposed procedure were verified by the physician and the nurse. The patient was placed in a swimmer's position between left lateral decubitus and prone position and the scope was passed under direct vision. Throughout the procedure, the patient's blood pressure, pulse, and oxygen saturations were monitored continuously. The ERCP was accomplished without difficulty. The patient tolerated the procedure well. Findings: The side-viewing duodenoscope was passed directly into the upper esophagus and advanced to the second portion of the duodenum. The esophagus was normal. There was some chronic gastritis/type A gastritis of the body and fundus of the stomach and biopsies were obtained for H. pylori. The duodenum was normal. The ampulla was well-visualized. Initially, the pancreatic duct was cannulated with a guidewire and no contrast was injected. The second attempt was successful with selective cannulation of the common bile duct with the guidewire. The cholangiogram performed showed a 5 to 6 mm common bile duct with normal filling of the intrahepatic biliary system. There was no clear filling defect. There was extravasation of bile. A biliary sphincterotomy was performed of 6 to 7 mm. A biliary sweeping balloon (9 to 12 mm) was advanced to the hilum of the biliary system and inflated and pulled in a antegrade fashion through the biliary system with the passage of pimentel bile and a couple of flecks of stony debris but no solid stones. A second sweep yielded only pimentel bile. There was nonfilling of the cystic duct and gallbladder. The procedure was then ended. Impression: 1. Very minor choledocholithiasis (couple flecks of stony debris)?status post biliary sphincterotomy and balloon clearance 2. Nonfilling of cystic duct and gallbladder?suspect acute on chronic cholecystitis Plan: I will discuss the findings with the patient and family. I will also discuss with general surgery/Sunil Fernandez. I will follow-up the biopsies.
[2023-12-11] MEDS: INDOMETHACIN 50MG SUPPOSITORY 50 MG RC (15:08)
--- NOTE | 2023-12-11 15:28 | ECG_ITS ---
APPROVED REPORT Exam: Resting ECG HR:62 bpm ECG Measurements Heart Rate 62 AXES IL 163 P 61 QRSd 96 QRS 44 QT 403 T 22 QTc 407 Conclusion SINUS RHYTHM WITH SINUS ARRHYTHMIA POSSIBLE RIGHT VENTRICULAR CONDUCTION DELAY [RSR (QR) IN V1/V2] BORDERLINE ECG UNCONFIRMED REPORT Electronically signed by : Zi Bates MD 12/12/2023 15:25:27
--- NOTE | 2023-12-11 15:30 | EXP.ANES.I ---
[facility] Anesthesia Record Part I Anesthesia Record I Intake, IV Amount: 500 Hydration: Adequate Estimated blood loss (mL): 0 Urine output (mL): 0 Blood Pressure: 123/63 SaO2: 99 Pulse Rate: 74 Airway Patency: Patent Respiratory Rate: 20 Temperature: 97.3 F Patient is:: Awake Stable to PACU at:: 15:21
--- NOTE | 2023-12-11 15:35 | SUR.PHASEI ---
EKG obtained in PACU r/t rhythm change. EKG reviewed by Momo Stallings CRNA. Pt's HR ranging 47-55. She awakens easily and is able to answer questions appropriately. Will continue to monitor.
--- NOTE | 2023-12-11 15:47 | SUR.PHASEI ---
Spoke to Dr. Arechiga about pt's bradycardia, made aware of current VS. No further orders at this time, pt is acceptable for transfer back to floor.
--- NOTE | 2023-12-11 15:55 | EXP.PN ---
Subjective *Date: 12/11/23 *Time: 21:08 Interval history: Patient was sitting comfortably in bed this morning without acute concerns or distress. Denies nausea/vomiting, abdominal pain today. Exam Data for Last 24 hours Vital signs and Labs for Last 24 Hours: Temp Pulse Resp BP Pulse Ox O2 Del Method O2 Flow Rate 97.3 F L 51 L 16 134/68 100 Room Air 5 12/11/23 15:31 12/11/23 15:41 12/11/23 15:41 12/11/23 15:41 12/11/23 15:41 12/11/23 15:41 12/11/23 14:41 Laboratory Results - last 24 hr 12/10/23 18:14: Urine Color Yellow, Urine Appearance Clear, Urine pH 6.0, Ur Specific [place] >= 1.030, Urine Protein Trace, Urine Glucose (UA) Negative, Urine Ketones Negative, Urine Blood 3+ A, Urine Nitrate Negative, Urine Bilirubin Negative, Urine Urobilinogen 4.0, Ur Leukocyte Esterase Negative, Urine RBC 5-10, Urine WBC 20-50, Ur Squamous Epith Cells 20-50, Urine Bacteria 4+ 12/10/23 18:18: WBC 7.4, RBC 4.81, Hgb 13.8, Hct 40.3, MCV 83.8, MCH 28.8, MCHC 34.3, RDW 15.0, Plt Count 252, MPV 8.7, Neut % (Auto) 78.8, Lymph % (Auto) 15.0, [place] % (Auto) 4.9, Eos % (Auto) 0.8, Baso % (Auto) 0.5, Neut # (Auto) 5.8, Lymph # (Auto) 1.1, [place] # (Auto) 0.4, Eos # (Auto) 0.1, Baso # (Auto) 0.0, Sodium 137, Potassium 3.5, Chloride 105, Carbon Dioxide 26, Anion Gap 9.5, BUN 9, Creatinine 0.70, Estimated Creat Clear 147, Estimated GFR 98, Est GFR ( Amer) 119, Glucose 127 H, Calcium 9.1, Total Bilirubin 2.5 H, AST 537 H*, ALT 424 H*, Alkaline Phosphatase 193 H, Total Protein 7.5, Albumin 4.5, Globulin 3.0, Albumin/Globulin Ratio 1.5, Lipase 446 H, HCG, Quant < 2, HIV 1&2 Antibody Rapid Nonreactive 12/11/23 06:05: WBC 5.3 D, RBC 4.14 L, Hgb 12.7, Hct 37.3, MCV 90.1, MCH 29.9, MCHC 33.2, RDW 14.8, Plt Count 229, MPV 8.0, Neut % (Auto) 63.8, Lymph % (Auto) 26.3, [place] % (Auto) 5.3, Eos % (Auto) 3.6, Baso % (Auto) 1.0, Neut # (Auto) 3.4, Lymph # (Auto) 1.4, [place] # (Auto) 0.3, Eos # (Auto) 0.2, Baso # (Auto) 0.1, Sodium 140, Potassium 3.3 L, Chloride 106, Carbon Dioxide 26, Anion Gap 11.3, BUN 9, Creatinine 0.80, Estimated Creat Clear 130, Estimated GFR 84, Est GFR ( Amer) 102, Glucose 90 D, Calcium 8.6, Total Bilirubin 1.0, AST 263 H D, ALT 384 H*, Alkaline Phosphatase 174 H, Total Protein 6.6, Albumin 4.0 D, Globulin 2.6, Albumin/Globulin Ratio 1.5 I & O for Last 24 hours: Intake & Output 12/08/23 12/09/23 12/10/23 12/11/23 23:59 23:59 23:59 23:59 Intake Total 1132 / 1132 Output Total 0 / 0 Balance 1132 / 1132 Weight 78.97 kg 79.968 kg Constitutional Constitutional: no acute distress and obese *Routine HEENT Exam Head: Present normocephalic Eye: Present EOMI and PERRL ENT: Present mucous membranes moist *Routine Neck Exam Neck: Present supple; Absent lymphadenopathy *Routine Respiratory Exam Respiratory: Present CTA bilaterally *Routine Cardiovascular Exam Cardiovascular: Present RRR *Routine Abdominal Exam Abdominal: Present soft and normoactive bowel sounds; Absent tenderness *Routine Extremities Exam Extremities: Absent cyanosis, clubbing or edema *Routine Skin Exam Skin: Present warm; Absent rash *Routine Neurological Exam Neurological: Present alert and oriented X3 Assessment and Plan *Assessment and plan (1) Cholecystitis with cholelithiasis: Status: Acute Category: Medical Code(s): K80.10 - Calculus of gallbladder with chronic cholecystitis without obstruction Plan Patient is a 28-year-old female without significant past medical history who presents to the hospital due to intermittent abdominal pain in the right upper quadrant. Patient mentions she has associated nausea vomiting nonbloody, she rates her pain 9/10 intensity during the episode. Patient otherwise denied diarrhea constipation dysuria. Patient recently had vaginal delivery 3 months ago and she also complains of intermittent vaginal bleeding. Patient was noticed to have abnormal LFTs, elevated bilirubin and lipase level. Patient otherwise denied chest pain shortness of breath fevers chills. CT abdomen pelvis positive for cholelithiasis with diffuse gallbladder wall thickening concerning for cholecystitis. Assessment and plan #Acute on chronic cholecystitis ? CT abdomen pelvis positive for cholelithiasis with diffuse gallbladder wall thickening concerning for cholecystitis ? Elevated AST, ALT, lipase suggesting current or previous choledocholithiasis ? GI consulted, performed ERCP which showed minor choledocholithiasis s/p biliary sphincterectomy and balloon clearance. ? General Surgery consulted, their impression is that this is more so chronic cholecystitis but will perform outpatient cholecystectomy within a week. ? Patient is stable, no abdominal pain today. Continue Zosyn until tomorrow. ? Monitor overnight, anticipate discharge if patient is stable tomorrow. ? Clear liquid diet, will advance tomorrow. #Vaginal bleeding ? COMPLIANCE SPECIALIST consulted, assured patient that light vaginal bleeding is normal with Nexplanon. Will follow-up outpatient to consider OCPs. ? Hemoglobin stable. Continue to monitor DVT prophylaxis-heparin
[2023-12-11] MEDS: ONDANSETRON 4MG/2ML VIAL 4 MG IV (15:59)
--- NOTE | 2023-12-11 19:41 | PC.NURSE ---
0 patient denies any current pain and states she is feeling much better, ambulating in room, and voiding without discomfort. and two children in room.
[2023-12-11] MEDS: 0.9 % SODIUM CHLORIDE 1000ML 1,000 ML 75 ML IV (22:19)
[2023-12-12] VITALS: BP 104/63; PULSE 63; PULSE 80; RESP 16; TEMP 36.8; O2SAT 100
[2023-12-12] MEDS: PIPERACILLIN/TAZO 3.375 GM in 0.9 % SODIUM CHLORIDE 50 ML IV ×2 (03:24→09:34)
[2023-12-12 04:00] VITALS: PULSE 50; BMI 28.4
[2023-12-12 04:41] VITALS: BP 104/62; PULSE 73; RESP 16; TEMP 36.6; O2SAT 98
[2023-12-12 05:14] LABS: HCV Ab Non Reactive (Non Reactive)
--- NOTE | 2023-12-12 06:31 | PC.NURSE ---
patient has been pain free t/o the night with no medication.
[2023-12-12 07:01] LABS: Basophils % 0.5 % (0.1-2.0); Eosinophils # 0.2 K/mm3 (0.0-0.4); Eosinophils % 3.1 % (0.1-12.0); Hematocrit 36.5 % (37.0-47.0); Hemoglobin 12.2 g/dL (12.2-16.2); Lymphocytes # 1.8 K/mm3 (0.7-4.5); Lymphocytes % 32.5 % (10-50); Mean Corpuscular HGB Conc 33.4 g/dL (31.8-35.4); Mean Corpuscular Hemoglobin 30.5 pg (27.0-31.2); Mean Corpuscular Volume 91.4 fl (81-99); Monocytes # 0.2 K/mm3 (0.1-1.0); Monocytes % 4.3 % (1.7-9.3); Neutrophils # 3.2 K/mm3 (1.8-7.8); Neutrophils % 59.5 % (37.0-80.0); Platelet Count 215 K/mm3 (142-424); Red Blood Count 3.99 M/mm3 (4.20-5.40); Red Cell Distribution Width 14.7 % (11.5-17.5); White Blood Count 5.4 K/mm3 (4.8-10.8)
[2023-12-12 07:06] LABS: Albumin Level 3.9 g/dl (3.5-5.0); Chloride 107 mmol/L (98-107); Sodium 141 mmol/L (136-145)
[2023-12-12 07:07] LABS: Potassium 3.6 mmoL/L (3.5-5.1)
[2023-12-12 07:09] LABS: Alanine Aminotransferase 291 U/L (12-78); Albumin/Globulin Ratio 1.6 (1.1-1.8); Alkaline Phosphatase 145 U/L (38-126); Anion Gap 11.6 mEq/L (5-15); Aspartate Amino Transferase 116 U/L (14-36); Blood Urea Nitrogen 7 mg/dl (7-17); Carbon Dioxide 26 mmol/L (22.0-30.0); Creatinine Clearance Estimated 153 mL/min (50-200); Estimated Glomerular Filt Rate 98 ml/min (>60); GFR (African American) 119 ML/MIN (>60); Globulin 2.5 g/dL (1.3-3.2); Total Protein,Serum 6.4 g/dl (6.3-8.2)
[2023-12-12 07:10] LABS: Calcium 8.6 mg/dl (8.4-10.2); Glucose 85 mg/dl (74-100)
[2023-12-12 08:00] VITALS: BP 104/44; PULSE 56; PULSE 80; RESP 16; TEMP 37.4; O2SAT 100
[2023-12-12] MEDS: ACETAMINOPHEN 500MG TAB 1000 MG PO (09:50)
--- NOTE | 2023-12-12 10:19 | P.PN_ITS ---
Subjective Narrative: Patient doing well with no complaints. No issues with abdominal pain. Underwent ERCP yesterday. Exam Data for Last 24 hours Vital signs and Labs for Last 24 Hours: Temp Pulse Resp BP Pulse Ox O2 Del Method O2 Flow Rate 99.4 F 56 L 16 104/44 L 100 Room Air 5 12/12/23 08:00 12/12/23 08:00 12/12/23 08:00 12/12/23 08:00 12/12/23 08:00 12/12/23 08:00 12/11/23 14:41 Laboratory Results - last 24 hr 12/10/23 18:18: Hepatitis C Antibody Non reactive 12/12/23 06:13: WBC 5.4, RBC 3.99 L, Hgb 12.2, Hct 36.5 L, MCV 91.4, MCH 30.5, MCHC 33.4, RDW 14.7, Plt Count 215, MPV 8.0, Neut % (Auto) 59.5, Lymph % (Auto) 32.5, [place] % (Auto) 4.3, Eos % (Auto) 3.1, Baso % (Auto) 0.5, Neut # (Auto) 3.2, Lymph # (Auto) 1.8, [place] # (Auto) 0.2, Eos # (Auto) 0.2, Baso # (Auto) 0.0, Sodium 141, Potassium 3.6, Chloride 107, Carbon Dioxide 26, Anion Gap 11.6, BUN 7, Creatinine 0.70, Estimated Creat Clear 153, Estimated GFR 98, Est GFR ( Amer) 119, Glucose 85, Calcium 8.6, Total Bilirubin 1.0, AST 116 H D, ALT 291 H, Alkaline Phosphatase 145 H, Total Protein 6.4, Albumin 3.9, Globulin 2.5, Albumin/Globulin Ratio 1.6 I & O for Last 24 hours: Intake & Output 12/09/23 12/10/23 12/11/23 12/12/23 11:59 11:59 11:59 11:59 Intake Total 632 / 632 1040 / 1040 Output Total 0 / 0 0 / 0 Balance 632 / 632 1040 / 1040 Weight 176 lb 4.8 oz 181 lb 4.8 oz Progress Note: A&P Assessment and plan (1) Cholecystitis with cholelithiasis: Status: Acute Assessment and plan: Patient probably has episodes of acute on chronic cholecystitis. No indications at this time for emergent cholecystectomy. Tentatively plan for early outpatient cholecystectomy. I will see her in the office in several days.
[2023-12-12 12:00] VITALS: PULSE 70
--- NOTE | 2023-12-12 12:29 | P.DS_ITS ---
General Admission date:: 12/10/23 HPI HPI HPI: Mrs Blanche Higgins is a very pleasant 28 yo [id number] admitted to [facility] for intermittent abdominal pain with nausea and vomiting over the past month. She was found to have cholecystitis with cholelithiasis. On admission she admitted to intermittent vaginal bleeding. She had Nexplanon inserted 10/24/23 for contraception. She admits bleeding is light but irregular. She states this is not concerning to her. She had irregular bleeding with Nexplanon contraception prior to last vaginal delivery as well. She denies pelvic pain. No vaginal discharge, itching or burning. History of x 2. Last delivery was 09/13/23. She denies RUQ abdominal pain this morning. Feeling well this morning. Hospital Course Hospital Course Hospital Course: Patient is a 28-year-old female without significant past medical history who presents to the hospital due to intermittent abdominal pain in the right upper quadrant. Patient mentions she has associated nausea vomiting nonbloody, she rates her pain 9/10 intensity during the episode. Patient otherwise denied diarrhea constipation dysuria. Patient recently had vaginal delivery 3 months ago and she also complains of intermittent vaginal bleeding. Patient was noticed to have abnormal LFTs, elevated bilirubin and lipase level. Patient otherwise denied chest pain shortness of breath fevers chills. CT abdomen pelvis positive for cholelithiasis with diffuse gallbladder wall thickening concerning for cholecystitis. #Chronic cholecystitis ? CT abdomen pelvis positive for cholelithiasis with diffuse gallbladder wall thickening concerning for cholecystitis ? Elevated AST, ALT, lipase suggesting current or previous choledocholithiasis. No fevers, leukocytosis, abdominal pain. ? GI consulted, performed ERCP which showed minor choledocholithiasis s/p biliary sphincterectomy and balloon clearance. ? General Surgery consulted, their impression is that this is more so chronic cholecystitis but will perform outpatient cholecystectomy within a week. - Treated with IV Zosyn but discontinued on discharge as there is not evidence of acute cholecystitis at this time. ? Patient is stable, no abdominal pain today. ? Tolerating diet without issues. Medically stable for discharge. - Will follow-up with GI and general surgery within 1 week. #Vaginal bleeding ? SALES PROJECT ENGINEER consulted, assured patient that light vaginal bleeding is normal with Nexplanon. Will follow-up outpatient to consider OCPs. ? Hemoglobin stable at 12.2. Exam Data for Last 24 hours Vital signs and Labs for Last 24 Hours: Temp Pulse Resp BP Pulse Ox O2 Del Method O2 Flow Rate 99.4 F 56 L 16 104/44 L 100 Room Air 5 12/12/23 08:00 12/12/23 08:00 12/12/23 08:00 12/12/23 08:00 12/12/23 08:00 12/12/23 08:00 12/11/23 14:41 Laboratory Results - last 24 hr 12/10/23 18:18: Hepatitis C Antibody Non reactive 12/12/23 06:13: WBC 5.4, RBC 3.99 L, Hgb 12.2, Hct 36.5 L, MCV 91.4, MCH 30.5, MCHC 33.4, RDW 14.7, Plt Count 215, MPV 8.0, Neut % (Auto) 59.5, Lymph % (Auto) 32.5, [place] % (Auto) 4.3, Eos % (Auto) 3.1, Baso % (Auto) 0.5, Neut # (Auto) 3.2, Lymph # (Auto) 1.8, [place] # (Auto) 0.2, Eos # (Auto) 0.2, Baso # (Auto) 0.0, Sodium 141, Potassium 3.6, Chloride 107, Carbon Dioxide 26, Anion Gap 11.6, BUN 7, Creatinine 0.70, Estimated Creat Clear 153, Estimated GFR 98, Est GFR ( Amer) 119, Glucose 85, Calcium 8.6, Total Bilirubin 1.0, AST 116 H D, ALT 291 H, Alkaline Phosphatase 145 H, Total Protein 6.4, Albumin 3.9, Globulin 2.5, Albumin/Globulin Ratio 1.6 I & O for Last 24 hours: Intake & Output 12/09/23 12/10/23 12/11/23 12/12/23 23:59 23:59 23:59 23:59 Intake Total 1132 / 1422 540 / 540 Output Total 0 / 0 0 / 0 Balance 1132 / 1422 540 / 540 Weight 78.97 kg 79.968 kg 82.236 kg Constitutional Constitutional: no acute distress and obese *Routine HEENT Exam Head: Present normocephalic Eye: Present EOMI and PERRL ENT: Present mucous membranes moist *Routine Neck Exam Neck: Present supple; Absent lymphadenopathy *Routine Respiratory Exam Respiratory: Present CTA bilaterally *Routine Cardiovascular Exam Cardiovascular: Present RRR *Routine Abdominal Exam Abdominal: Present soft and normoactive bowel sounds; Absent tenderness *Routine Extremities Exam Extremities: Absent cyanosis, clubbing or edema *Routine Skin Exam Skin: Present warm; Absent rash *Routine Neurological Exam Neurological: Present alert and oriented X3 Results Data Completed and Pending Labs on day of discharge: Labs from last 24 hours 12/12/23 12/10/23 06:13 18:18 WBC 5.4 RBC 3.99 L Hgb 12.2 Hct 36.5 L MCV 91.4 MCH 30.5 MCHC 33.4 RDW 14.7 Plt Count 215 MPV 8.0 Neut % (Auto) 59.5 Lymph % (Auto) 32.5 [place] % (Auto) 4.3 Eos % (Auto) 3.1 Baso % (Auto) 0.5 Neut # (Auto) 3.2 Lymph # (Auto) 1.8 [place] # (Auto) 0.2 Eos # (Auto) 0.2 Baso # (Auto) 0.0 Sodium 141 Potassium 3.6 Chloride 107 Carbon Dioxide 26 Anion Gap 11.6 BUN 7 Creatinine 0.70 Estimated Creat Clear 153 Estimated GFR 98 Est GFR ( Amer) 119 Glucose 85 Calcium 8.6 Total Bilirubin 1.0 AST 116 H D ALT 291 H Alkaline Phosphatase 145 H Total Protein 6.4 Albumin 3.9 Globulin 2.5 Albumin/Globulin Ratio 1.6 Hepatitis C Antibody Non reactive DS: Diagnosis Discharge Diagnosis (1) Cholecystitis with cholelithiasis: Status: Resolved Code(s): K80.10 - Calculus of gallbladder with chronic cholecystitis without obstruction Meds Home Medications and Allergies Home Medications ?Medication ?Instructions ?Recorded ?Confirmed ?Type hydrocodone 5 mg-acetaminophen 325 1 - 2 tab PO Q6H PRN Pain #17 tabs 12/18/23 Rx mg tablet New Prescriptions to Start Prescriptions: Allergies Allergy/AdvReac Type Severity Reaction Status Date / Time No Known Allergies Allergy Verified 12/18/23 06:29 Discharge Plan Disposition Patient Disposition: Home, Self-Care Follow up Plan Follow up with: Sunil Fernnadez MD [Staff Physician] - 12/16/23 11:00 am Destin Guerrier II, MD [Staff Physician] - 01/14/24 9:30 am Hernandez Bermeo [Primary Care Provider] - 12/18/23 2:30 pm Prescriptions/Medication Reconciliation: No Action hydrocodone-acetaminophen 5-325 mg Tablet 1 - 2 tab PO Q6H PRN (Reason: Pain) Qty: 17 0RF Problem Reconciliation Problems Reviewed?: Yes Patient Discharge Instructions ACTIVITY: Continue current activity DIET: continue same diet Additional Instructions: You do not need further antibiotics at this time as it looks like your acute cholecystitis has resolved. Patient Instructions: DI for Abdominal Pain-Adult Print Language: Italian Providers Primary Care Provider: Hernandez Bermeo Admit Provider: Antonia Ventura Attending Provider: Antonia Ventura
--- NOTE | 2023-12-13 10:50 | PC.NURSE ---
urine culture results from 12/09 are final and show no growth. Forwarded to hospitalist group as pt was adx 12/09-12/11
== END 2023-12-12 13:37 | disposition home or self-care (01) ==
LOC: ER 21:11 → 2ND 21:34
PROVIDERS: Internal Medicine Gastroenterology; Admitting Provider Internal Medicine; Emergency Provider Emergency Medicine; PCP Internal Medicine; Visit Provider Internal Medicine
PROC: (CPT 43262; principal; 2023-12-11 14:00)
DX: K80.46 Calculus of bile duct with acute and chronic cholecystitis without obstruction (principal); N92.1 Excessive and frequent menstruation with irregular cycle; Z97.5 Presence of (intrauterine) contraceptive device
CPT/HCPCS: 43262; 43261; 43264; 36415; 74177; 74330; 76000; 76705; 80053; 81001; 83690; 84702; 85025; 86803; 87086; 87389; 93005; 99221; 99285; C1889; G0378; J2250; J2405; J2543; J3010; J7030; Q9967

== ENCOUNTER 2023-12-18 06:05 | Day surgery (SDC) | payer BC, SELFPAY ==
[2023-12-16 11:28] VITALS: BMI 27.3
[2023-12-18] VITALS (11 sets, daily range): BP systolic 93–139; BP diastolic 46–80; PULSE 75–104; RESP 13–18; TEMP 36.2–43; O2SAT 98–99
[2023-12-18 06:38] LABS: Urine Pregnancy, HCG Qual. Negative (Negative)
--- NOTE | 2023-12-18 06:56 | P.PNANES_ITS ---
[facility] Disclaimer: The information contained in this section may have been updated after the patient was seen, as this information can be updated by other users. Medical History Breakthrough bleeding on Nexplanon Nexplanon in place Obstetric vaginal laceration 2nd degree perineal bilateral sulcus lacerations Recurrent loss Surgical History No history of previous surgery Family History Mother Thyroid disorder Social History Smoking Status: Never smoker alcohol intake: never substance use type: denies use current occupational status: unemployed Travel in the last 8 weeks: None household members: spouse housing: house current occupational exposures/hazards: No caffeine: No [facility] Anesthesia Checklist Patient Identification Patient Identification: Arm Band and Family Structural Data Admitted From: Home Planned Operative Procedure/s: Lap Jeanette Consent for Planned Operative Procedure(s) Verified: Yes Verified Documents: Surgical Consent and History and Physical NPO Status Verified Time NPO: 00:00 Additional verifications Patient : No Anesthesia Reactions: No Hx Blood Transfusions: No Blood Transfusion Reaction: No Cephalosporin Allergy: No Previous Colonoscopy: No Airway Assessment Mallampati Score:: Class II C-Spine Mobility Assessed: Yes TMJ Mobility Assessed: Yes Dentition: Good Dentition Neurological Assessment Level of Consciousness: Awake, Alert, Appropriate and Follows Commands Hx Seizures: No Numbness or tingling in extremities: No Anesthesia Plan Anesthesia Risk discussed: Yes ASA Class: I Anesthesia Type: General
[2023-12-18] MEDS: LACTATED RINGERS 1000ML 1,000 ML 25 ML IV (07:09)
[2023-12-18] MEDS: CEFAZOLIN SODIUM 2 GM in 0.9 % SODIUM CHLORIDE 100 ML IV (07:15)
[2023-12-18] MEDS: ROPIVACAINE 0.5% 30ML VIAL 150 MG (07:40)
[2023-12-18] MEDS: LIDOCAINE 1% 20ML MDV 20 ML (07:40)
--- NOTE | 2023-12-18 08:23 | EXP.OP.NOTE ---
Date of procedure: 12/18/23 Pre-op Diagnosis:: Symptomatic gallstones, chronic cholecystitis Post-op Diagnosis:: Same Procedure performed:: Laparoscopic cholecystectomy Surgeon:: Sunil Fernandez MD [employer] DEVELOPER:: Costa Abarca Anesthesia: GETPrashant Estimated blood loss (mL): 15 Clinical Note:: Patient presents for cholecystectomy after her inpatient hospitalization for gallbladder. Patient is a 28-year-old female who is 3 months status post normal vaginal delivery. Incidentally, she has had intermittent vaginal bleeding. She has had intermittent abdominal pain in the right upper quadrant with associated nausea and vomiting over the past month that have usually been self-limited. She had a significant episode and presented to the emergency department on 12/10/23. She was found to have elevated lipase of 450. She did have elevated bilirubin of 2.5 with some elevation of transaminases and alkaline phosphatase. She underwent CT scan of the abdomen and pelvis which revealed cholelithiasis with diffuse gallbladder wall thickening. Findings could be due to cholecystitis. It is somewhat atypical for acute cholecystitis to present without gallbladder distention and therefore this could be chronic cholecystitis or potentially secondary to other pathologies including diffuse adenomyomatosis. No biliary ductal dilatation. Gastroenterology was contacted. Plan was for admission for inpatient management and consultations. Consultations were placed with gastroenterology (for choledocholithiasis), gynecology (for vaginal bleeding), general surgery (to evaluate for cholecystectomy). The following morning her symptoms had resolved. Liver function tests were improving with normalization of bilirubin. She did undergo gallbladder ultrasound which revealed gallbladder wall thickening with stones and sludge with small amount of pericholecystic fluid. Common bile duct was 3 mm. As an inpatient she underwent ERCP with gastroenterology which revealed minor choledocholithiasis characterized by couple of flecks of stony debris. She had sphincterotomy performed. There was nonfilling of the cystic duct and gallbladder and acute on chronic cholecystitis was suspected. Was felt that the patient would benefit from early interval outpatient cholecystectomy. Since discharge from the hospital she has been doing well. She was seen back in the office. Options were discussed and she wished to pursue cholecystectomy. Arrangements were made. Operative findings:: She had some mild fatty infiltration of the liver. Gallbladder was elongated distended with mild thickening. There were some minimal adhesions of omentum to the gallbladder. Operative note:: Consent was obtained patient was taken the operating room. She was given preoperative intravenous antibiotics. In the operating room she was placed in a supine position. General anesthesia was induced via endotracheal tube. Abdomen was prepped and draped in the standard surgical fashion. Subumbilical skin incision was made and while performing abdominal wall lift Veress needle was inserted and CO2 pneumoperitoneum was achieved to 15 mmHg. 11 mm trocar was inserted at the umbilicus. Intraperitoneal contents were visualized. She was positioned in reverse Trendelenburg left side down. A couple 5 mm trocars were inserted in the right upper abdomen. 11 mm trocar was inserted in the epigastrium. Gallbladder was grasped retracted anteriorly and superiorly over the dome of the liver. There was some omental adhesions to the gallbladder which were taken down using blunt dissection. Infundibulum of the gallbladder was retracted anterior laterally. Prolonged dissection was carried out the neck of the gallbladder bluntly incising the visceral peritoneum. Limited use of NATO ultrasonic harmonic sheldon was used for dissection. Cystic duct and cystic artery were clearly identified and the critical view of safety. Cystic duct was isolated, multiply clipped, and sharply divided. Cystic artery was carefully coagulated with NATO ultrasonic harmonic sheldon and divided. Gallbladder was dissected free from the liver in a retrograde fashion using NATO ultrasonic harmonic sheldon. Gallbladder was placed within an Endo Catch retrieval device removed from the peritoneal cavity via the umbilical trocar site. Gallbladder fossa was inspected for hemostasis which was assured. Limited irrigation was performed. Trocars were then removed as CO2 pneumoperitoneum was evacuated. Fascia at the umbilicus was closed with a couple 0 Vicryl sutures. Anterior rectus fascia at the epigastric site was closed with a 0 Vicryl suture. Local anesthetic was infiltrated. Skin incisions were closed with 4-0 Monocryl in a subcuticular fashion. Dermabond and dressings were applied. Condition: stable Disposition: PACU Complications:: None immediately apparent
--- NOTE | 2023-12-18 08:32 | EXP.ANES.I ---
[facility] Anesthesia Record Part I Anesthesia Record I Intake, IV Amount: 850 Hydration: Adequate Estimated blood loss (mL): 15 Urine output (mL): 0 Blood Products used (#): none Blood Pressure: 128/74 SaO2: 99 Pulse Rate: 104 Airway Patency: Patent Respiratory Rate: 18 Temperature: 97.4 F Patient is:: Drowsy and Stable Stable to PACU at:: 08:30
--- NOTE | 2023-12-18 13:18 | EXP.ANES.II ---
[facility] Anesthesia Record Part II Anesthesia Record Part II Discharge Time: 09:00 Destination: Surgical Day Care (OP Surgery) PACU nurse assessment reviewed?: Yes Patient Condition:: Good Anesthesia Complications:: None Swallowing reflex intact?: Yes Airway Patency: Patent Cyanosis?: No Blood Pressure: 120/74 SaO2: 98 Respiratory Rate: 16 Pulse Rate: 75 Temperature: 97.4 F Mental Status: Alert & Oriented Pain level:: 0 Nausea and/or vomitting:: None Intake, IV Amount: 0 Hydration: Adequate
== END 2023-12-18 09:31 | disposition home or self-care (01) ==
PROVIDERS: PCP Internal Medicine; Visit Provider Surgery
PROC: 0FT44ZZ Resection of Gallbladder, Percutaneous Endoscopic Approach (ICD-10-PCS; CPT 47562; principal; 2023-12-18 07:30)
DX: K80.10 Calculus of gallbladder with chronic cholecystitis without obstruction (principal)
CPT/HCPCS: 47562; 81025; 96374; J3490; J0690; J1100; J2250; J2405; J3010; J7120